=== PATIENT | female | born 1950 | race Caucasian/White ===

== ENCOUNTER 2016-09-03 13:27 | Emergency (ER) | payer MEDICARE, OTHER ==
[~2016-09-03] VITALS: Ht 152.4 cm; Wt 57.2 kg
[~2016-09-03 13:27] MED LIST: ATOR1TAB21 PO; CETI10TA PO; FLON1SPR; FLUO40CA PO; LEVO25TA5 PO; LISI10TA4 PO; MIRT30TA3 PO; NIAS1000 PO; OMEP40CA2 PO; SPIR1CAP INH; TOPR50TA PO
[2016-09-03] MEDS ORDERED: CYCL10TA PO (13:43)
[2016-09-03] MEDS ORDERED: FLUTISP (13:43)
[2016-09-03 15:10] LABS: BASO % 0.9 % (0.0-1.0); EOS # 0.1 K/mm3 (0.0-0.50); EOS % 2.6 % (0.0-3.0); LARGE UNSTAINED CELL # 0.2 K/mm3 (0.0-0.4); LARGE UNSTAINED CELL % 3.3 % (0.0-4.0); LYMPH # 2.4 K/mm3 (1.5-4.5); LYMPH % 44.1 % (24.0-44.0); MEAN CORPUSCULAR HEMOGLOBIN 34.1 pg (27.0-33.0); MEAN CORPUSCULAR VOLUME 103.5 fl (80.0-96.0); MONO # 0.4 K/mm3 (0.0-0.8); MONO % 6.3 % (0.0-5.0); NEUTROPHILS # 2.4 K/mm3 (1.8-7.7); NEUTROPHILS % 42.7 % (36.0-66.0); PLATELET COUNT, AUTOMATED 252 k/mm3 (150-450); RED CELL DISTRIBUTION WIDTH 13.1 % (11.5-14.5); WHITE BLOOD COUNT 5.5 K/mm3 (4.0-10.0)
[2016-09-03 15:40] LABS: ALBUMIN 3.5 GM/DL (3.2-5.2); ALBUMIN/GLOBULIN RATIO 0.83 (1.00-1.93); ALKALINE PHOSPHATASE 110 U/L (45-117); ALT/SGPT 22 U/L (12-78); ANION GAP 5 MEQ/L (8-16); AST/SGOT 16 U/L (15-37); BILIRUBIN,DIRECT < 0.1 MG/DL (0.0-0.2); BILIRUBIN,TOTAL 0.2 MG/DL (0.2-1.0); BLOOD UREA NITROGEN 18 MG/DL (7-18); CARBON DIOXIDE LEVEL 27 MEQ/L (21-32); CHLORIDE LEVEL 111 MEQ/L (98-107); CREATININE FOR GFR 1.01 MG/DL (0.55-1.02); GLOMERULAR FILTRATION RATE 58.6 (>45); GLUCOSE, FASTING 85 MG/DL (80-110); POTASSIUM SERUM 4.1 MEQ/L (3.5-5.1); SODIUM LEVEL 143 MEQ/L (136-145); TOTAL PROTEIN 7.7 GM/DL (6.4-8.2)
[2016-09-03] MEDS ORDERED: fentaNYL 100 MCG/2 ML INJECTION (J3010) IV ONE (16:45)
[2016-09-03] MEDS ORDERED: ONDANSETRON 4MG/2ML VIAL (J2405) IV ONE (16:45)
[2016-09-03 18:50] VITALS: BP 117/65
== END 2016-09-03 18:53 | disposition home or self-care (01) ==
LOC: M ED 17:24
DX: R42 Dizziness and giddiness (principal); R51 Headache; R11.0 Nausea; J44.9 Chronic obstructive pulmonary disease, unspecified; I11.9 Hypertensive heart disease without heart failure; I35.9 Nonrheumatic aortic valve disorder, unspecified; I67.1 Cerebral aneurysm, nonruptured; F17.200 Nicotine dependence, unspecified, uncomplicated; Z88.5 Allergy status to narcotic agent; Z88.2 Allergy status to sulfonamides; Z79.899 Other long term (current) drug therapy
CPT/HCPCS: 70450; 71020; 80048; 80076; 81001; 84443; 85025; 93005; 96374; 96375; 99284; J2405; J3010

== ENCOUNTER → 2016-11-05 | Outpatient (CLI) | payer MEDICARE, OTHER ==
[~2016-11-05] MED LIST changes: +CYCL10TA PO; +FLUTISP; +PLAV1TAB2 PO
[2016-11-05 09:50] LABS: BASO % 0.5 % (0.0-1.0); EOS # 0.1 K/mm3 (0.0-0.50); EOS % 2.7 % (0.0-3.0); LYMPH # 1.5 K/mm3 (1.5-4.5); LYMPH % 29.1 % (24.0-44.0); MEAN CORPUSCULAR HEMOGLOBIN 34.2 pg (27.0-33.0); MEAN CORPUSCULAR HGB CONC 33.6 g/dl (32.0-36.5); MEAN CORPUSCULAR VOLUME 101.7 fl (80.0-96.0); MONO # 0.3 K/mm3 (0.0-0.8); MONO % 5.7 % (0.0-5.0); NEUTROPHILS # 3.1 K/mm3 (1.8-7.7); RED CELL DISTRIBUTION WIDTH 13.5 % (11.5-14.5); WHITE BLOOD COUNT 5.2 K/mm3 (4.0-10.0)
[2016-11-05 10:25] LABS: ALBUMIN 3.7 GM/DL (3.2-5.2); ALBUMIN/GLOBULIN RATIO 1.06 (1.00-1.93); ALKALINE PHOSPHATASE 102 U/L (45-117); ALT/SGPT 18 U/L (12-78); ANION GAP 5 MEQ/L (8-16); AST/SGOT 14 U/L (15-37); BILIRUBIN,TOTAL 0.3 MG/DL (0.2-1.0); BLOOD UREA NITROGEN 12 MG/DL (7-18); CARBON DIOXIDE LEVEL 27 MEQ/L (21-32); CHLORIDE LEVEL 112 MEQ/L (98-107); CHOLESTEROL LEVEL 157 MG/DL (<200); CREATININE FOR GFR 0.92 MG/DL (0.55-1.02); FREE T4 0.94 NG/DL (0.76-1.46); GLOMERULAR FILTRATION RATE > 60.0 (>45); GLUCOSE, FASTING 94 MG/DL (80-110); POTASSIUM SERUM 4.6 MEQ/L (3.5-5.1); SODIUM LEVEL 144 MEQ/L (136-145); TOTAL PROTEIN 7.2 GM/DL (6.4-8.2); TRIGLYCERIDES LEVEL 148 MG/DL (<150)
== END ==
LOC: M LAB 09:12
PROVIDERS: ATTEND Nurse Practitioner Adult Health
DX: Z51.81 Encounter for therapeutic drug level monitoring (principal); Z79.899 Other long term (current) drug therapy; E78.00 Pure hypercholesterolemia, unspecified; E55.9 Vitamin D deficiency, unspecified

== ENCOUNTER 2016-12-21 19:49 | Emergency (ER) | payer MEDICARE, OTHER ==
[~2016-12-21] VITALS: Ht 152.4 cm; Wt 56.3 kg
[~2016-12-21 19:49] MED LIST changes: -PLAV1TAB2 PO
[2016-12-21] MEDS ORDERED: PLAV1TAB2 PO (20:07)
[2016-12-21] MEDS ORDERED: MORPHINE 2 MG/ML 1ML SYRINGE IV ONE (20:30)
[2016-12-21] MEDS ORDERED: ASPIRIN 325 MG TAB PO ONE (20:30)
[2016-12-21 20:52] LABS: BASO % 0.4 % (0.0-1.0); EOS # 0.2 10^3/uL (0.0-0.50); EOS % 1.8 % (0.0-3.0); IMMATURE GRANULOCYTE % 0.4 % (0-0); LYMPH # 3.6 10^3/uL (1.5-4.5); LYMPH % 43.6 % (24.0-44.0); MEAN CORPUSCULAR HEMOGLOBIN 33.7 pg (27.0-33.0); MEAN CORPUSCULAR HGB CONC 33.3 g/dl (32.0-36.5); MEAN CORPUSCULAR VOLUME 101.2 fl (80.0-96.0); MONO # 0.5 10^3/uL (0.0-0.8); MONO % 6.3 % (0.0-5.0); NEUTROPHILS # 3.9 10^3/uL (1.8-7.7); NEUTROPHILS % 47.5 % (36.0-66.0); PLATELET COUNT, AUTOMATED 248 10^3/uL (150-450); RED CELL DISTRIBUTION WIDTH 14.4 % (11.5-14.5); WHITE BLOOD COUNT 8.3 10^3/uL (4.0-10.0)
[2016-12-21 20:57] LABS: ADD MORPHOLOGY? NO
[2016-12-21 21:04] LABS: INR 0.94
[2016-12-21 21:25] LABS: ANION GAP 8 MEQ/L (8-16); BLOOD UREA NITROGEN 22 MG/DL (7-18); CALCIUM LEVEL 8.8 MG/DL (8.8-10.2); CARBON DIOXIDE LEVEL 25 MEQ/L (21-32); CHLORIDE LEVEL 108 MEQ/L (98-107); CREATININE FOR GFR 0.95 MG/DL (0.55-1.02); GLOMERULAR FILTRATION RATE > 60.0 (>45); GLUCOSE, FASTING 89 MG/DL (80-110); POTASSIUM SERUM 4.1 MEQ/L (3.5-5.1); SODIUM LEVEL 141 MEQ/L (136-145)
[2016-12-22 02:30] VITALS: BP 128/73
--- NOTE | 2016-12-22 08:26 | REP ---
Portable chest, 08:45 p.m., single AP view, patient sitting: Comparison is 09/03/2016. The lung phillips are clear. The cardiac size is normal. The vilma, mediastinum, and bony thorax are unremarkable. Impression: Negative portable chest. Signed by Julio Solorio MD 12/22/2016 08:18 A
--- NOTE | 2016-12-22 09:30 | ECGEPIP ---
Stationary ECG Study 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
--- NOTE | 2016-12-22 09:32 | ECGEPIP ---
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
== END 2016-12-22 02:56 | disposition home or self-care (01) ==
LOC: M ED 19:49
DX: R07.89 Other chest pain (principal); I10 Essential (primary) hypertension; J44.9 Chronic obstructive pulmonary disease, unspecified; I67.1 Cerebral aneurysm, nonruptured; E78.5 Hyperlipidemia, unspecified; K21.9 Gastro-esophageal reflux disease without esophagitis; E03.9 Hypothyroidism, unspecified; F33.9 Major depressive disorder, recurrent, unspecified; F17.210 Nicotine dependence, cigarettes, uncomplicated; Z79.01 Long term (current) use of anticoagulants; Z79.899 Other long term (current) drug therapy; Z79.51 Long term (current) use of inhaled steroids; Z86.79 Personal history of other diseases of the circulatory system; Z88.5 Allergy status to narcotic agent; Z88.2 Allergy status to sulfonamides

== ENCOUNTER → 2017-04-01 | Outpatient (CLI) | payer MEDICARE, OTHER ==
[2017-04-01 14:31] LABS: BASO # 0.1 10^3/uL (0.0-0.2); BASO % 0.9 % (0.0-1.0); EOS # 0.2 10^3/uL (0.0-0.50); EOS % 3.1 % (0.0-3.0); HEMATOCRIT 37.7 % (36.0-47.0); HEMOGLOBIN 12.5 g/dl (12.0-16.0); IMMATURE GRANULOCYTE % 0.4 % (0-0); LYMPH % 36.4 % (24.0-44.0); MEAN CORPUSCULAR HEMOGLOBIN 33.3 pg (27.0-33.0); MEAN CORPUSCULAR HGB CONC 33.2 g/dl (32.0-36.5); MEAN CORPUSCULAR VOLUME 100.5 fl (80.0-96.0); MONO # 0.5 10^3/uL (0.0-0.8); MONO % 8.8 % (0.0-5.0); NEUTROPHILS # 2.8 10^3/uL (1.8-7.7); NEUTROPHILS % 50.4 % (36.0-66.0); PLATELET COUNT, AUTOMATED 245 10^3/uL (150-450); RED BLOOD COUNT 3.75 10^6/uL (4.00-5.40); RED CELL DISTRIBUTION WIDTH 14.2 % (11.5-14.5); WHITE BLOOD COUNT 5.6 10^3/uL (4.0-10.0)
[2017-04-01 14:35] LABS: APPEARANCE, URINE CLEAR (CLEAR); BACTERIA, URINE AUTO 1+ (NEGATIVE); BILIRUBIN, URINE AUTO NEGATIVE (NEGATIVE); BLOOD, URINE BLOOD NEGATIVE (NEGATIVE); COLOR, URINE YELLOW (YELLOW); GLUCOSE, URINE (UA) AUTO NEGATIVE (NEGATIVE); KETONE, URINE AUTO NEGATIVE (NEGATIVE); LEUKOCYTE ESTERASE, URINE AUTO 2+ (NEGATIVE); NITRITE, URINE AUTO NEGATIVE (NEGATIVE); PROTEIN, URINE AUTO NEGATIVE (NEGATIVE); RBC, URINE AUTO 4 /HPF (0-3); SPECIFIC GRAVITY URINE AUTO 1.008 (1.002-1.035); SQUAMOUS EPITHELIAL CELL UR AU 2 /HPF (0-6); UROBILINOGEN, URINE AUTO 0.2 mg/dL (0.0-2.0); WBC, URINE AUTO 3 /HPF (0-3)
[2017-04-01 14:43] LABS: INR 0.91; PROTHROMBIN TIME 12.3 SECONDS (12.4-14.5)
[2017-04-01 14:44] LABS: PARTIAL THROMBOPLASTIN TIME 31.2 SECONDS (26.8-37.9)
[2017-04-01 14:58] LABS: ANION GAP 4 MEQ/L (8-16); BLOOD UREA NITROGEN 12 MG/DL (7-18); CALCIUM LEVEL 8.6 MG/DL (8.8-10.2); CARBON DIOXIDE LEVEL 29 MEQ/L (21-32); CHLORIDE LEVEL 110 MEQ/L (98-107); CREATININE FOR GFR 0.91 MG/DL (0.55-1.02); GLOMERULAR FILTRATION RATE > 60.0 (>45); GLUCOSE, FASTING 84 MG/DL (80-110); POTASSIUM SERUM 4.8 MEQ/L (3.5-5.1); SODIUM LEVEL 143 MEQ/L (136-145)
== END ==
LOC: M LAB 14:08
DX: Z01.812 Encounter for preprocedural laboratory examination (principal); I65.21 Occlusion and stenosis of right carotid artery; N39.0 Urinary tract infection, site not specified
CPT/HCPCS: 80048

== ENCOUNTER → 2017-07-26 | Outpatient (REF) | payer MEDICARE, OTHER | LOC: M LAB REF 15:15 | DX: R19.7 Diarrhea, unspecified (principal) | CPT/HCPCS: 87493 ==

== ENCOUNTER → 2017-09-08 | Outpatient (CLI) | payer MEDICARE, OTHER ==
[2017-09-08 09:54] LABS: BASO % 0.3 % (0.0-1.0); EOS # 0.1 10^3/uL (0.0-0.50); EOS % 1.7 % (0.0-3.0); HEMATOCRIT 35.9 % (36.0-47.0); HEMOGLOBIN 11.9 g/dl (12.0-15.5); IMMATURE GRANULOCYTE % 0.2 % (0-3.0); LYMPH % 34.6 % (24.0-44.0); MEAN CORPUSCULAR HEMOGLOBIN 33.7 pg (27.0-33.0); MEAN CORPUSCULAR HGB CONC 33.1 g/dl (32.0-36.5); MEAN CORPUSCULAR VOLUME 101.7 fl (80.0-96.0); MONO # 0.4 10^3/uL (0.0-0.8); MONO % 7.7 % (0.0-5.0); NEUTROPHILS # 3.2 10^3/uL (1.8-7.7); NEUTROPHILS % 55.5 % (36.0-66.0); PLATELET COUNT, AUTOMATED 234 10^3/uL (150-450); RED BLOOD COUNT 3.53 10^6/uL (4.00-5.40); RED CELL DISTRIBUTION WIDTH 14.5 % (11.5-14.5); WHITE BLOOD COUNT 5.7 10^3/uL (4.0-10.0)
[2017-09-08 10:05] LABS: ESTIMATED AVERAGE GLUCOSE 123 MG/DL (60-110); HEMOGLOBIN A1c 5.9 %
[2017-09-08 10:26] LABS: ALBUMIN 3.4 GM/DL (3.2-5.2); ALBUMIN/GLOBULIN RATIO 0.92 (1.00-1.93); ALKALINE PHOSPHATASE 93 U/L (45-117); ALT/SGPT 19 U/L (12-78); ANION GAP 3 MEQ/L (8-16); AST/SGOT 12 U/L (7-37); BILIRUBIN,TOTAL 0.2 MG/DL (0.2-1.0); BLOOD UREA NITROGEN 15 MG/DL (7-18); CALCIUM LEVEL 8.5 MG/DL (8.8-10.2); CARBON DIOXIDE LEVEL 28 MEQ/L (21-32); CHLORIDE LEVEL 112 MEQ/L (98-107); CHOLESTEROL LEVEL 155 MG/DL (<200); CREATININE FOR GFR 0.95 MG/DL (0.55-1.30); FREE T4 0.87 NG/DL (0.76-1.46); GLOMERULAR FILTRATION RATE > 60.0 (>45); GLUCOSE, FASTING 96 MG/DL (70-100); HDL CHOLESTEROL 42 MG/DL (>40); LDL CHOLESTEROL 86.2 MG/DL (<100); NON-HDL-C 113 MG/DL; POTASSIUM SERUM 4.2 MEQ/L (3.5-5.1); SODIUM LEVEL 143 MEQ/L (136-145); TOTAL PROTEIN 7.1 GM/DL (6.4-8.2); TRIGLYCERIDES LEVEL 134 MG/DL (<150)
[2017-09-08 10:31] LABS: TOTAL 25(OH) VITAMIN D 59.6 NG/ML (30.0-100.0)
== END ==
LOC: M LAB 09:23
DX: Z79.899 Other long term (current) drug therapy (principal)
CPT/HCPCS: 84443

== ENCOUNTER 2018-08-26 12:53 | Emergency (ER) | payer MEDICARE, OTHER ==
[~2018-08-26 12:53] MED LIST changes: +ASPI81TA26 PO; -NIAS1000 PO; +PLAV1TAB2 PO; +VITA50005 PO; +[UNRECOGNIZED DRUG - CODE] PO
--- NOTE | 2018-08-26 13:53 | REP ---
Clinical: Headache. Comparison: 09/03/2016 Findings: Left-sided aneurysmal clipping. The ventricles, sulci, and cisterns are normal in position and appearance. To-white differentiation is maintained. No acute intracranial hemorrhage, mass/mass effect, pathology or trauma/injury. No evidence for acute infarction. No extra-axial fluid collection. Calvarium is intact. Paranasal sinuses and mastoid air cells are clear. Impression: Evidence for recent left-sided aneurysmal clipping. No evidence for acute intracranial pathology or trauma/injury. Electronically Signed by Manny Hernandez MD 08/26/2018 01:45 P
--- NOTE | 2018-08-26 13:54 | REP ---
Clinical: Altered mental status . Comparison: 12/21/2016 . Findings: The mediastinum and cardiac silhouette are stable and within normal limits for portable technique. The lung phillips are clear without acute consolidation, effusion, or pneumothorax. Skeletal structures are intact. Impression: No acute cardiopulmonary process appreciated. Electronically Signed by Manny Hernandez MD 08/26/2018 01:45 P
--- NOTE | 2018-08-26 13:56 | REP ---
Clinical: Headache. Technique: Axial noncontrast images from the skull base to the thoracic inlet with coronal and sagittal re-formations. Comparison: Neck CT dated 07/08/2016 Findings: Straightening of normal lordosis and advanced multilevel degenerative disc osteophyte complexes are progressive when compared to prior examination. No acute fracture / compression injury or subluxation. Spinal canal is patent. Posterior elements and spinous processes are intact. Paravertebral soft tissues are normal. Impression: Advanced multilevel degenerative spondylosis. No acute fracture / compression injury or subluxation. Electronically Signed by Manny Hernandez MD 08/26/2018 01:47 P
[2018-08-26] MEDS ORDERED: ONDANSETRON 4MG/2ML VIAL (J2405) IV ONE (14:15)
[2018-08-26] MEDS ORDERED: MORPHINE 2 MG/ML 1ML SYRINGE (J2270) IV PRN (14:15)
[2018-08-26 14:21] LABS: BASO % 0.7 % (0.0-1.0); EOS # 0.1 10^3/uL (0.0-0.50); EOS % 1.1 % (0.0-3.0); HEMOGLOBIN 11.3 g/dl (12.0-15.5); LYMPH # 2.3 10^3/uL (1.5-4.5); LYMPH % 41.4 % (24.0-44.0); MEAN CORPUSCULAR HEMOGLOBIN 32.9 pg (27.0-33.0); MEAN CORPUSCULAR HGB CONC 32.3 g/dl (32.0-36.5); MONO # 0.4 10^3/uL (0.0-0.8); MONO % 7.6 % (0.0-5.0); NEUTROPHILS # 2.7 10^3/uL (1.8-7.7); PLATELET COUNT, AUTOMATED 236 10^3/uL (150-450); RED BLOOD COUNT 3.43 10^6/uL (4.00-5.40); WHITE BLOOD COUNT 5.6 10^3/uL (4.0-10.0)
[2018-08-26 14:38] LABS: INR 0.97
[2018-08-26 14:39] LABS: PARTIAL THROMBOPLASTIN TIME 32.3 SECONDS (25.4-37.6)
[2018-08-26 14:58] LABS: BLOOD UREA NITROGEN 10 MG/DL (7-18); CARBON DIOXIDE LEVEL 27 MEQ/L (21-32); CHLORIDE LEVEL 106 MEQ/L (98-107); CK-MB VALUE MASS < 1.0 NG/ML (<3.6); CPK CREATINE PHOSPHOKINASE 55 U/L (26-192); CREATININE FOR GFR 0.77 MG/DL (0.55-1.30); FREE T4 0.86 NG/DL (0.76-1.46); GLOMERULAR FILTRATION RATE > 60.0 (>45); GLUCOSE, FASTING 87 MG/DL (70-100); MB/CK RELATIVE INDEX 1.82 (< OR =4); POTASSIUM SERUM 4.4 MEQ/L (3.5-5.1); SODIUM LEVEL 142 MEQ/L (136-145); TROPONIN I < 0.02 NG/ML (< 0.10)
[2018-08-26 15:30] VITALS: BP 158/74
[2018-08-26] MEDS ORDERED: SKEL800T97 PO (15:36)
--- NOTE | 2018-08-26 19:23 | ECGEPIP ---
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
[2018-08-30 00:08] LABS: Lyme Disease IgG/IgM Antibodie <0.91 ISR (0.00-0.90); Lyme Disease IgM Ab Quantitati <0.80 index (0.00-0.79)
== END 2018-08-26 16:06 | disposition home or self-care (01) ==
LOC: M ED 12:53
DX: M62.838 Other muscle spasm (principal); I11.9 Hypertensive heart disease without heart failure; E78.00 Pure hypercholesterolemia, unspecified; F44.9 Dissociative and conversion disorder, unspecified; K22.70 Barrett's esophagus without dysplasia; F32.9 Major depressive disorder, single episode, unspecified; F17.200 Nicotine dependence, unspecified, uncomplicated; Z91.041 Radiographic dye allergy status; Z88.2 Allergy status to sulfonamides; Z88.5 Allergy status to narcotic agent; Z79.899 Other long term (current) drug therapy; Z79.82 Long term (current) use of aspirin
CPT/HCPCS: 36415; 70450; 71045; 72125; 80048; 82550; 82553; 84439; 84443; 84484; 85025; 85610; 85730; 86617; 86850; 86900; 86901; 93005; 93041; 94760; 96374; 96375; 99285; J2270; J2405

== ENCOUNTER 2018-09-17 12:18 | Emergency (ER) | payer MEDICARE, OTHER ==
[~2018-09-17] VITALS: Ht 149.9 cm; Wt 55.0 kg
[~2018-09-17 12:18] MED LIST changes: +SKEL800T97 PO
[2018-09-17 12:52] LABS: BASO % 0.4 % (0.0-1.0); EOS # 0.1 10^3/uL (0.0-0.50); HEMATOCRIT 36.3 % (36.0-47.0); HEMOGLOBIN 12.2 g/dl (12.0-15.5); LYMPH # 1.6 10^3/uL (1.5-4.5); MEAN CORPUSCULAR HEMOGLOBIN 34.5 pg (27.0-33.0); MEAN CORPUSCULAR HGB CONC 33.6 g/dl (32.0-36.5); MEAN CORPUSCULAR VOLUME 102.5 fl (80.0-96.0); MONO # 0.5 10^3/uL (0.0-0.8); MONO % 10.8 % (0.0-5.0); NEUTROPHILS # 2.6 10^3/uL (1.8-7.7); NEUTROPHILS % 53.6 % (36.0-66.0); PLATELET COUNT, AUTOMATED 257 10^3/uL (150-450); RED BLOOD COUNT 3.54 10^6/uL (4.00-5.40); WHITE BLOOD COUNT 4.8 10^3/uL (4.0-10.0)
[2018-09-17] MEDS ORDERED: ZOLP10TA2 (12:56)
--- NOTE | 2018-09-17 12:58 | REP ---
CT of the brain without IV contrast: Comparison is 08/26/2018. There are too aneurysm clips. The left, as previously. There is no acute hemorrhage. There is no edema, mass effect or midline shift. The cortical stripe is unremarkable. The visualized paranasal sinuses and mastoid air cells are unchanged. Impression: There is no hemorrhage, acute infarct or mass. There are to aneurysm clips on the left, unchanged. Electronically Signed by Julio Solorio MD 09/17/2018 12:48 P
[2018-09-17] MEDS ORDERED: NS 1,000 ML IV ONE (13:00)
[2018-09-17 13:04] LABS: INR 1.08; PROTHROMBIN TIME 13.7 SECONDS (11.8-14.0)
--- NOTE | 2018-09-17 13:08 | REP ---
Portable chest, 12:38 p.m., single AP view with the patient sitting: Comparison is 08/26/2018. There is minor discoid atelectasis inferiorly in the left lung as an interval change. There is a bulla in the right apex, unchanged. Lung phillips otherwise clear. Cardiac size normal. The vilma, mediastinum, skeletal structures are unremarkable. Impression: Minor discoid atelectasis inferiorly in the left lung. Electronically Signed by Julio Solorio MD 09/17/2018 12:58 P
[2018-09-17 13:29] LABS: ALBUMIN 3.4 GM/DL (3.2-5.2); ALT/SGPT 13 U/L (12-78); BILIRUBIN,DIRECT < 0.1 MG/DL (0.0-0.2); BILIRUBIN,TOTAL 0.3 MG/DL (0.2-1.0); BLOOD UREA NITROGEN 10 MG/DL (7-18); CALCIUM LEVEL 8.8 MG/DL (8.8-10.2); CARBON DIOXIDE LEVEL 26 MEQ/L (21-32); CHLORIDE LEVEL 107 MEQ/L (98-107); CK-MB VALUE MASS < 1.0 NG/ML (<3.6); CPK CREATINE PHOSPHOKINASE 45 U/L (26-192); CREATININE FOR GFR 0.87 MG/DL (0.55-1.30); GLOMERULAR FILTRATION RATE > 60.0 (>45); GLUCOSE, FASTING 106 MG/DL (70-100); MAGNESIUM LEVEL 2.1 MG/DL (1.8-2.4); MB/CK RELATIVE INDEX 2.22 (< OR =4); SODIUM LEVEL 140 MEQ/L (136-145); TOTAL PROTEIN 7.4 GM/DL (6.4-8.2); TROPONIN I < 0.02 NG/ML (< 0.10)
[2018-09-17 16:36] VITALS: BP 130/74
--- NOTE | 2018-09-18 06:55 | ECGEPIP ---
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
== END 2018-09-17 16:46 | disposition home or self-care (01) ==
LOC: M ED 12:18
DX: R53.1 Weakness (principal); J44.9 Chronic obstructive pulmonary disease, unspecified; I10 Essential (primary) hypertension; E03.9 Hypothyroidism, unspecified; F32.9 Major depressive disorder, single episode, unspecified; E78.5 Hyperlipidemia, unspecified; Z72.0 Tobacco use; Z79.82 Long term (current) use of aspirin; Z79.899 Other long term (current) drug therapy; Z91.041 Radiographic dye allergy status; Z88.2 Allergy status to sulfonamides; Z88.5 Allergy status to narcotic agent

== ENCOUNTER → 2018-10-12 | Outpatient (CLI) | payer MEDICARE, OTHER ==
[~2018-10-12] MED LIST changes: +ZOLP10TA2
--- NOTE | 2018-10-12 13:46 | REP ---
Pelvis bilateral hip study: Five views. History: Low back pain. Hip pain. Findings: Bony pelvic ring is intact. Some vascular calcification is noted. Femoral heads are smooth and rounded. Hip joint spaces are preserved. Periarticular soft tissues are unremarkable bilaterally. There are degenerative disc and facet changes in the lower lumbar spine. Impression: Negative pelvis and bilateral hip study. Electronically Signed by Denny Rome MD 10/12/2018 07:21 P
--- NOTE | 2018-10-12 13:48 | REP ---
CERVICAL, THORACIC AND LUMBAR SPINE: Seven views. HISTORY: Low back pain back pain. Comparison cervical spine series February 24, 2010. FINDINGS: There is straightening of the normal cervical lordosis. Advanced degenerative disc disease is seen with anterior osteophyte formation at C3-4, C4-5, C5-6, and C6-7. This it is somewhat more pronounced than it was on February 24, 2010. No fracture or collapse is seen in the cervical spine. No malalignment is noted. 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 This is most pronounced on the left at C2-3 and C3-4. This is more pronounced than on the 2009 prior study as well. Thoracic vertebral body heights are preserved. Alignment is normal in the thoracic spine. There is moderate degenerative disc spurring anteriorly. Diffuse disc space narrowing and endplate sclerosis is seen in the thoracic spine. There is no fracture or collapse. Pedicles and posterior elements are intact. No paravertebral soft-tissue mass is seen. In the lumbar spine, there is a levoconvex curvature. Lumbar vertebral body heights are preserved. No fracture or collapse is seen. Diffuse degenerative disc disease is seen with anterior osteophyte formation. Psoas margins are symmetric. Sacrum and SI joints are intact. There is facet joint sclerosis and hypertrophy bilaterally at L5-S1, L4-5, and L3-4. IMPRESSION: Advanced degenerative spondylosis. No acute bony abnormality. Levoconvex curvature in the lumbar spine. Electronically Signed by Denny Rome MD 10/12/2018 07:22 P
== END ==
LOC: M RAD 10:14
PROVIDERS: ATTEND Nurse Practitioner Adult Health
DX: M54.2 Cervicalgia (principal); M47.897 Other spondylosis, lumbosacral region; M47.896 Other spondylosis, lumbar region

== ENCOUNTER → 2019-12-24 | Outpatient (CLI) | payer MEDICARE, OTHER ==
[~2019-12-24] MED LIST changes: +ATOR40TA75 PO; +BACL10TA2 PO; +CYAN1000VL; +CYCL-707 PO; -CYCL10TA PO; +ESCI20TA PO; +FOLI1TAB11 PO; -OMEP40CA2 PO; +OMEP40CA97 PO; +RA T500C2 PO; +VASC1CAP2 PO
[2019-12-24 13:34] LABS: BLOOD UREA NITROGEN 11 MG/DL (7-18); GLOMERULAR FILTRATION RATE > 60.0 (>45)
== END ==
LOC: M LAB 12:00
PROVIDERS: ATTEND Internal Medicine Gastroenterology
DX: R63.4 Abnormal weight loss (principal)

== ENCOUNTER → 2019-12-27 | Outpatient (CLI) | payer MEDICARE, OTHER | LOC: M RAD 12:01 | PROVIDERS: ATTEND Internal Medicine Gastroenterology | DX: R63.4 Abnormal weight loss (principal) ==

== ENCOUNTER → 2020-01-07 | Outpatient (CLI) | payer MEDICARE, OTHER ==
[~2020-01-07] MED LIST changes: +GASTROGRAFIN SOLUTION 30ML (Q9963) As Ordered ONE
--- NOTE | 2020-01-10 15:38 | REP ---
CT ABDOMEN WITHOUT INTRAVENOUS (IV) BUT WITH ORAL CONTRAST HISTORY: Abnormal weight loss. COMPARISON: CT study of the abdomen from 03/06/2005. 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 Axial CT images and lung window settings show that the lung bases are clear. There is no evidence of pleural effusion or upper abdominal ascites. The liver is normal in size and homogeneous in texture. Spleen is normal and homogeneous. No abnormality is noted in the pancreas or in the gallbladder. Normal adrenal glands are seen. The left kidney is mildly atrophic. There is a 2 mm intrarenal calculus in the upper pole of the right kidney. No hydronephrosis is seen on either side. The infrarenal abdominal aorta is dilated. The anteroposterior dimension is 3.3 cm. No perianeurysmal hemorrhage or fibrosis is appreciated. No retroperitoneal mass or adenopathy is seen. Small and large intestinal bowel loop are unremarkable in the abdomen. There is some diverticulosis affecting the left colon without CT evidence of diverticulitis. IMPRESSION: Mild left renal atrophy. Intrarenal nephrolithiasis upper pole right kidney without hydronephrosis. A 3.3 cm infrarenal abdominal aortic aneurysm. Left colonic diverticulosis. MTDD
== END ==
LOC: M RAD 14:20
PROVIDERS: ATTEND Internal Medicine Gastroenterology
DX: N20.0 Calculus of kidney (principal); I71.4 Abdominal aortic aneurysm, without rupture
CPT/HCPCS: 74160; Q9963

== ENCOUNTER → 2020-01-23 | Outpatient (CLI) | payer MEDICARE, OTHER ==
[~2020-01-23] MED LIST changes: -GASTROGRAFIN SOLUTION 30ML (Q9963) As Ordered ONE
== END | disposition home or self-care (01) ==
LOC: M LABSMTC 11:02
PROVIDERS: ATTEND Anesthesiology
DX: Z01.818 Encounter for other preprocedural examination (principal)
CPT/HCPCS: C9803; U0003

== ENCOUNTER 2020-01-28 11:52 | Day surgery (SDC) | payer MEDICARE, OTHER ==
[~2020-01-28] VITALS: Ht 149.9 cm; Wt 49.4 kg
[2020-01-28] MEDS ORDERED: propofoL 200 MG/20 ML VIAL As Ordered ONE (12:29)
[2020-01-28] MEDS ORDERED: LIDOCAINE 2% 100MG/5ML SDV (FOR ANES.) As Ordered ONE (12:29)
[2020-01-28] MEDS ORDERED: fentaNYL 100 MCG/2 ML INJECTION (J3010) As Ordered ONE (12:32)
[2020-01-28] MEDS ORDERED: NS 1,000 ML IV ONE (12:45)
[2020-01-28] MEDS ORDERED: ePHEDrine SULFATE 25 MG/5 ML(5MG/ML) SYRINGE As Ordered ONE (13:07)
--- NOTE | 2020-01-28 13:08 | ROOR ---
Patient Name: Blanca Machado Procedure Date: 01/28/2020 12:49 PM Date of : 1950 Age: 69 Room: [facility] Gender: Female Note Status: Finalized Procedure: Upper GI endoscopy Indications: Follow-up of Wang's esophagus, Diarrhea Providers: Zeferino DAVALOS MD Referring MD: ROMEO NIXON NP Requesting Provider: Medicines: Monitored Anesthesia Care Complications: No immediate complications. Procedure: Pre-Anesthesia Assessment: - The heart rate, respiratory rate, oxygen saturations, blood pressure, adequacy of pulmonary ventilation, and response to care were monitored throughout the procedure. The Endoscope was introduced through the mouth, and advanced to the second part of duodenum. The upper GI endoscopy was accomplished without difficulty. The patient tolerated the procedure well. Findings: The Z-line was variable and was found 35 cm from the incisors. This was biopsied with a cold forceps for histology. The examined esophagus was normal. The entire examined stomach was normal. The examined duodenum was normal. Biopsies for histology were taken with a cold forceps for evaluation of celiac disease. Impression: - Z-line variable, 35 cm from the incisors. Biopsied. - Normal esophagus. - Normal stomach. - Normal examined duodenum. Biopsied. Recommendation: - Telephone endoscopist for pathology results in 2 weeks. - Observe patient's clinical course. - Repeat upper endoscopy in 3 - 5 years for surveillance. Zeferino Davalos MD Zeferino DAVALOS MD 01/28/2020 1:07:46 PM Electronically signed by Zeferino DAVALOS MD Number of Addenda: 0 Note Initiated On: 01/28/2020 12:49 PM Estimated Blood Loss: Estimated blood loss: none.
--- NOTE | 2020-01-28 13:33 | ROOR ---
Patient Name: Blanca Machado Procedure Date: 01/28/2020 12:50 PM Date of : 1950 Age: 69 Room: [facility] Gender: Female Note Status: Finalized Procedure: Colonoscopy Indications: Clinically significant diarrhea of unexplained origin, Change in bowel habits Providers: Zeferino DAVALOS MD Referring MD: ROMEO NIXON NP Requesting Provider: Medicines: Monitored Anesthesia Care Complications: No immediate complications. Procedure: Pre-Anesthesia Assessment: - The heart rate, respiratory rate, oxygen saturations, blood pressure, adequacy of pulmonary ventilation, and response to care were monitored throughout the procedure. The Colonoscope was introduced through the anus and advanced to 5 cm into the ileum. The colonoscopy was performed without difficulty. The patient tolerated the procedure well. The quality of the bowel preparation was good. Findings: The perianal and digital rectal examinations were normal. Multiple small and large-mouthed diverticula were found in the sigmoid colon. There was evidence of diverticular spasm. Two sessile polyps were found in the proximal sigmoid colon. The polyps were 4 to 5 mm in size. These polyps were removed with a cold snare. Resection and retrieval were complete. The colon (entire examined portion) was redundant. The exam was otherwise without abnormality on direct and retroflexion views. Biopsies for histology were taken with a cold forceps for evaluation of microscopic colitis. Impression: - Internal Hemorrhoids. - Moderate diverticulosis in the sigmoid colon. There was evidence of diverticular spasm. - Two 4 to 5 mm polyps in the proximal sigmoid colon, removed with a cold snare. Resected and retrieved. - The Colon and examined terminal ileum are otherwise normal on direct and retroflexion views. - Biopsies were taken with a cold forceps for evaluation of microscopic colitis. Recommendation: - Telephone endoscopist for pathology results in 2 weeks. - Repeat colonoscopy in 3 - 5 years for surveillance. Zeferino Davalos MD Zeferino DAVALOS MD 01/28/2020 1:33:02 PM Electronically signed by Zeferino DAVALOS MD Number of Addenda: 0 Note Initiated On: 01/28/2020 12:50 PM Estimated Blood Loss: Estimated blood loss: none.
[2020-01-28 13:47] VITALS: BP 130/62
== END 2020-01-28 13:58 | disposition home or self-care (01) ==
LOC: M OPP 11:52
PROVIDERS: ATTEND Internal Medicine Gastroenterology
DX: D12.6 Benign neoplasm of colon, unspecified (principal); Q43.8 Other specified congenital malformations of intestine; R19.7 Diarrhea, unspecified; R19.4 Change in bowel habit; K22.8 Other specified diseases of esophagus; K22.70 Barrett's esophagus without dysplasia; J44.9 Chronic obstructive pulmonary disease, unspecified; K21.9 Gastro-esophageal reflux disease without esophagitis; Z79.82 Long term (current) use of aspirin; Z79.899 Other long term (current) drug therapy; Z88.1 Allergy status to other antibiotic agents; Z88.5 Allergy status to narcotic agent; Z91.041 Radiographic dye allergy status; F17.210 Nicotine dependence, cigarettes, uncomplicated
CPT/HCPCS: 43239; 45380; 45385; 88305; J3010

== ENCOUNTER → 2020-05-06 | Outpatient (CLI) | payer MEDICARE, OTHER ==
[~2020-05-06] MED LIST changes: -ESCI20TA PO; +ESCI20TA16 PO; +LISI10TA22 PO; -LISI10TA4 PO
--- NOTE | 2020-05-06 09:10 | REP ---
INDICATION: AAA / OCCLUSION/STENOSIS DARIELA CAROTID ARTERIES COMPARISON: None. TECHNIQUE: Real time javier scale ultrasound examination using curved array transducer. FINDINGS: Moderate atherosclerotic changes to the aorta noted along with infrarenal aneurysm measuring 3.0 x 2.7 cm in diameter and 4.1 cm in length beginning below the level of the renal arteries and tapering to normal before bifurcation to iliac arteries. Proximal aorta: 2.1 x 2.1 cm Aorta and renal arteries: 2.1 x 2.2 cm Mid aorta: 3.0 x 2.7 cm Distal aorta: 1.5 x 1.3 cm Right common iliac artery: 1.2 x 1.0 cm Left common iliac artery: 1.3 x 0.8 cm IMPRESSION: Atherosclerotic changes. Moderate infrarenal abdominal aortic aneurysm. <Electronically signed by Manny Hernandez > 05/06/20 [id number]
--- NOTE | 2020-05-06 09:16 | REP ---
INDICATION: AAA / OCCLUSION/STENOSIS DARIELA CAROTID ARTERIES COMPARISON: None. TECHNIQUE: To scale and color Doppler evaluation using linear high frequency transducer Findings: FINDINGS: Two-dimensional to scale and color images demonstrate mixed atheromatous plaquing through the common carotid arteries and carotid bulbs/proximal internal carotid arteries (left greater than right). Laminar flow noted without obvious area of occlusion. Normal flow direction in the bilateral vertebral arteries identified. ICA peak systolic velocity: Right 97.2 cm/s; Left 127.0 cm/s ICA diastolic velocity: Right 24.9 cm/s; Left 34.5 cm/s ECA peak systolic velocity: Right 65.9 cm/s; Left 97.8 cm/s CCA peak systolic velocity: Right 99.7 cm/s; Left 109.7 cm/s ICA/CCA ratio: Right 0.97 ; Left 1.15 IMPRESSION: No hemodynamically significant areas of narrowing or stenosis appreciated. Based on set standards narrowing falls within the less than 50% range range. <Electronically signed by Manny Hernandez > 05/06/20 [id number]
== END ==
LOC: M RAD 07:58
PROVIDERS: ATTEND Physician Assistant
DX: I65.23 Occlusion and stenosis of bilateral carotid arteries (principal); I71.4 Abdominal aortic aneurysm, without rupture; I25.10 Atherosclerotic heart disease of native coronary artery without angina pectoris

== ENCOUNTER → 2020-06-02 | Outpatient (CLI) | payer MEDICARE, OTHER ==
--- NOTE | 2020-06-02 11:08 | REP ---
INDICATION: CLAUDICATION COMPARISON: None. TECHNIQUE: Real time to scale and Duplex Doppler evaluation of the bilateral lower extremity arterial vasculature using linear high frequency transducer. FINDINGS: To scale and duplex doppler images demonstrate mild diffuse scattered plaquing bilaterally. Diffuse biphasic waveforms are seen bilaterally, triphasic waveform is noted in the right profunda artery. There is no evidence of hemodynamically significant stenosis bilaterally. There is no arterial occlusion. TAMMY right 0.8 and left 0.9. Peak systolic velocities (cm/sec) Common femoral artery: Right 122; Left 191 Profunda femoris: Right 145; Left 67 SFA (proximal): Right 106; Left 110 SFA (mid): Right 111; Left 113 SFA (distal): Right 88; Left for 92 Popliteal artery: Right 56; Left 73 DARIO (prox.): Right 46; Left 66 Tibioperoneal trunk: Right 75; Left 66 LAMP REPLACER (prox.): Right 72; Left 76 LAMP REPLACER (distal): Right 42; Left 46 DARIO (distal): Right 58; Left 51 IMPRESSION: Mild scattered plaquing bilaterally with no evidence of hemodynamically significant stenosis and no arterial occlusion. <Electronically signed by Julio To > 06/02/20 [id number]
== END ==
LOC: M RAD 09:21
PROVIDERS: ATTEND Physician Assistant
DX: I70.213 Atherosclerosis of native arteries of extremities with intermittent claudication, bilateral legs (principal); F17.210 Nicotine dependence, cigarettes, uncomplicated

== ENCOUNTER → 2020-07-14 | Outpatient (CLI) | payer MEDICARE, OTHER ==
--- NOTE | 2020-07-14 11:46 | REPMRS ---
Patient History The patient states she has not had a clinical breast exam in over a year. Patient is postmenopausal. No known family history of cancer. Digital Woman Screen Mammo: July 14, 2020 - Exam #: [id number] Bilateral CC and MLO view(s) were taken. Technologist: Luna Amin, Technologist No prior studies available for comparison. FINDINGS: There are scattered fibroglandular densities. The Volpara volumetric breast density category is: B. There is no evidence of dominant mass, architectural distortion, or grouped microcalcification typical of malignancy. 3-D tomosynthesis shows no additional findings. Assessment: BI-RADS/ACR category 1 mammogram. Negative Mammogram. Recommendation Routine screening mammogram of both breasts in 1 year (for women over age 40). This patient's [facility] Lifetime Breast Cancer RIsk is estimated at 4.7 %. This mammogram was interpreted with the aid of an FDA-approved computer-aided dectection system. Electronically Signed By: Dedrick oRme MD 07/14/20 [id number]
--- NOTE | 2020-07-14 12:05 | DEXAMM ---
INDICATION: Z13.820 SCREENING FOR OSTEOPOROSIS. COMPARISON: Comparison DEXA study May 22, 2004, April 16, 2003, and January 25, 2001.. TECHNIQUE: Bone density was measured using dual-energy x-ray absorptionmetry (DEXA). FINDINGS: AP SPINE L1-L4 BMD 1.200 g/cm2 Young Adult T-Score 0.2 Age Matched Z-Score 1.8. LT FEMUR, TOTAL BMD 0.954 g/cm2 Young Adult T-Score -0.4 Age Matched Z-Score 1.0. LT NECK BMD 0.881 g/cm2 Young Adult T-Score -1.1 Age Matched Z-Score 0.5. RT FEMUR, TOTAL BMD 0.956 g/cm2 Young Adult T-Score -0.4 Age Matched Z-Score . RT NECK BMD 1.0 0.909 g/cm2 Young Adult T-Score -0.9 Age Matched Z-Score 0.7. IMPRESSION: There is normal bone density of the spine. There is low bone density of the left hip. There is normal bone density of the right hip. The density of the spine has increased 13.8% since the initial exam on January 25, 2001. The density of the spine increased 8.7% since most recent exam on May 22, 2004. The density of the left hip has decreased 14.5% since initial exam on January 25, 2001. The density of the left hip has decreased 16.6% since most recent exam on May 22, 2004. The density of the right hip has decreased 8.6% since the initial exam on January 25, 2001. The density of the right hip has decreased 8.5% since the most recent exam on May 22, 2004. FOLLOW-UP: Recommendation for the next bone density exam: 2 years. <Electronically signed by Dedrick Rome > 07/14/20 [id number]
== END ==
LOC: M WHC 10:11
PROVIDERS: ATTEND Nurse Practitioner Family
DX: Z12.31 Encounter for screening mammogram for malignant neoplasm of breast (principal); M81.0 Age-related osteoporosis without current pathological fracture

== ENCOUNTER → 2021-11-17 | Outpatient (CLI) | payer MEDICARE, OTHER ==
[~2021-11-17] MED LIST changes: +HYDR-3363 PO; +LEXA1TAB2 PO; +OMEP40CA4 PO; -OMEP40CA97 PO
== END ==
LOC: M WHC 13:26
PROVIDERS: ATTEND Nurse Practitioner Family
DX: Z12.39 Encounter for other screening for malignant neoplasm of breast (principal); N60.02 Solitary cyst of left breast; M79.602 Pain in left arm
CPT/HCPCS: 76642; 77066; G0279

== ENCOUNTER → 2021-11-20 | Outpatient (CLI) | payer MEDICARE, OTHER | LOC: M RAD 09:29 | PROVIDERS: ATTEND Nurse Practitioner Family | DX: R91.8 Other nonspecific abnormal finding of lung field (principal); Z87.891 Personal history of nicotine dependence ==

== ENCOUNTER → 2021-12-14 | Outpatient (CLI) | payer MEDICARE, OTHER ==
[~2021-12-14] MED LIST changes: +ACET-1349 PO; +B-12100010 PO; +BENA25CA4 PO; +ERGO500029 PO; +OXYC1TAB23 PO; +TOPR25TA PO; +TRAM50TA2 PO; +VARE1TAB7 PO; -ZOLP10TA2; +ZOLP10TA2 PO
== END ==
LOC: M PLARAD 13:49
PROVIDERS: ATTEND Nurse Practitioner Family
DX: D38.1 Neoplasm of uncertain behavior of trachea, bronchus and lung (principal)
CPT/HCPCS: 78815; A9552

== ENCOUNTER → 2021-12-23 | Outpatient (CLI) | payer MEDICARE, OTHER ==
[~2021-12-23] MED LIST changes: -ACET-1349 PO; -B-12100010 PO; -BENA25CA4 PO; -TOPR25TA PO; +ZOLP10TA2; -ZOLP10TA2 PO
== END ==
LOC: M RAD 10:54
PROVIDERS: ATTEND Nurse Practitioner Family
DX: I71.4 Abdominal aortic aneurysm, without rupture (principal)

== ENCOUNTER → 2021-12-23 | Outpatient (CLI) | payer MEDICARE, OTHER ==
[~2021-12-23] MED LIST changes: +ACET-1349 PO; +B-12100010 PO; +BENA25CA4 PO; +TOPR25TA PO; -ZOLP10TA2; +ZOLP10TA2 PO
== END ==
LOC: M RAD 13:00
PROVIDERS: ATTEND Nurse Practitioner Family
DX: I71.4 Abdominal aortic aneurysm, without rupture (principal)

== ENCOUNTER 2021-12-25 14:12 | Observation (INO) | payer MEDICARE, OTHER ==
[~2021-12-25] VITALS: Ht 149.9 cm; Wt 47.0 kg
[~2021-12-25 14:12] MED LIST changes: -HOME MED LIST COMPLETE! XX SCH; -KETOROLAC 30 MG/ML 1ML VIAL As Ordered ONE; -KETOROLAC 30 MG/ML 1ML VIAL IV ONE; -LIDOCAINE 1% MDV 20ML VIAL As Ordered ONE; -TOPR25TA PO
[2021-12-25] MEDS ORDERED: PERCOCET 5MG/325MG TAB PO PRN (15:00)
[2021-12-25] MEDS ORDERED: IPRATROPIUM 0.5MG/ALBUTEROL 2.5MG INH SOL UD 3ML (DUONEB) NEB PRN (15:00)
[2021-12-25] MEDS: ASPIRIN 81MG ENTERIC TABLET PO SCH (15:50)
[2021-12-25] MEDS: ATORVASTATIN 20 MG TAB PO SCH (15:50)
[2021-12-25] MEDS: ESCITALOPRAM OXALATE 10 MG TAB (LEXAPRO) PO SCH (15:51)
[2021-12-25] MEDS ORDERED: IBUPROFEN 400MG TAB PO PRN (17:00)
[2021-12-25] MEDS ORDERED: zolPIDEM TARTRATE 5 MG TAB PO PRN (17:00)
[2021-12-25] MEDS: NICOTINE 14 MG/24 HR TRANSDERMAL TD SCH (17:44)
[2021-12-25 17:53] VITALS: BP 139/63
[2021-12-25 20:00] VITALS: BP 124/58
[2021-12-25] MEDS ORDERED: METOPROLOL SUCC (TopROL XL) 50MG **XL** TAB PO SCH (21:00)
[2021-12-25] MEDS ORDERED: TIOTROPIUM INHALER/CAPSULE (SPIRIVA) INH SCH (21:00)
[2021-12-25] MEDS: PERCOCET 5MG/325MG TAB PO PRN (21:21)
[2021-12-25] MEDS: OMEPRAZOLE 20MG CAP PO SCH (21:21)
[2021-12-26] VITALS (7 sets, daily range): BP systolic 115–139; BP diastolic 56–89
[2021-12-26] MEDS ORDERED: LEVOTHYROXINE 25MCG TABLET (0.025MG) PO SCH (06:00)
[2021-12-26] MEDS: PERCOCET 5MG/325MG TAB PO PRN (06:05)
[2021-12-26 06:37] LABS: HEMATOCRIT 34.1 % (36.0-47.0); HEMOGLOBIN 11.1 g/dl (12.0-15.5); MEAN CORPUSCULAR HEMOGLOBIN 34.6 pg (27.0-33.0); MEAN CORPUSCULAR HGB CONC 32.6 g/dl (32.0-36.5); MEAN CORPUSCULAR VOLUME 106.2 fl (80.0-96.0); PLATELET COUNT, AUTOMATED 225 10^3/uL (150-450); RED BLOOD COUNT 3.21 10^6/uL (4.00-5.40); WHITE BLOOD COUNT 6.9 10^3/uL (4.0-10.0)
[2021-12-26 07:10] LABS: BLOOD UREA NITROGEN 23 MG/DL (7-18); CALCIUM LEVEL 8.9 MG/DL (8.8-10.2); CARBON DIOXIDE LEVEL 29 MEQ/L (21-32); CHLORIDE LEVEL 109 MEQ/L (98-107); CREATININE FOR GFR 0.89 MG/DL (0.55-1.30); GLOMERULAR FILTRATION RATE > 60.0 (>39); GLUCOSE, FASTING 86 MG/DL (70-100); POTASSIUM SERUM 4.1 MEQ/L (3.5-5.1); SODIUM LEVEL 142 MEQ/L (136-145)
[2021-12-26] MEDS: OMEPRAZOLE 20MG CAP PO SCH (08:31)
[2021-12-26] MEDS: ASPIRIN 81MG ENTERIC TABLET PO SCH (08:31)
[2021-12-26] MEDS: ATORVASTATIN 20 MG TAB PO SCH (08:31)
[2021-12-26] MEDS: NICOTINE 14 MG/24 HR TRANSDERMAL TD SCH (08:32)
[2021-12-26] MEDS: ESCITALOPRAM OXALATE 10 MG TAB (LEXAPRO) PO SCH (08:32)
[2021-12-26] MEDS ORDERED: FOLIC ACID 1MG TAB PO SCH (09:00)
[2021-12-26] MEDS ORDERED: NICOTINE 14 MG/24 HR TRANSDERMAL TD SCH (09:00)
[2021-12-26] MEDS ORDERED: CYANOCOBALAMIN 500 MCG TAB PO SCH (09:00)
[2021-12-26] MEDS ORDERED: TOPR25TA PO (13:08)
== END 2021-12-26 16:48 | disposition home or self-care (01) ==
LOC: M PCU 14:23 → INTOOBSV 14:23
PROVIDERS: ADMIT Internal Medicine; ATTEND Internal Medicine
DX: J95.811 Postprocedural pneumothorax (principal); R91.1 Solitary pulmonary nodule; I67.1 Cerebral aneurysm, nonruptured; Z95.828 Presence of other vascular implants and grafts; I71.43 Infrarenal abdominal aortic aneurysm, without rupture; I10 Essential (primary) hypertension; E03.9 Hypothyroidism, unspecified; E78.5 Hyperlipidemia, unspecified; J44.9 Chronic obstructive pulmonary disease, unspecified; K21.9 Gastro-esophageal reflux disease without esophagitis; F32.A Depression, unspecified; F17.210 Nicotine dependence, cigarettes, uncomplicated; Z79.899 Other long term (current) drug therapy; Z79.82 Long term (current) use of aspirin; Z79.890 Hormone replacement therapy; Z88.2 Allergy status to sulfonamides; Z88.5 Allergy status to narcotic agent; Z91.041 Radiographic dye allergy status
CPT/HCPCS: 36415; 71045; 80048; 85027; G0378

== ENCOUNTER → 2021-12-25 | Outpatient (CLI) | payer MEDICARE, OTHER ==
[~2021-12-25] MED LIST changes: +HOME MED LIST COMPLETE! XX SCH; +KETOROLAC 30 MG/ML 1ML VIAL As Ordered ONE; +KETOROLAC 30 MG/ML 1ML VIAL IV ONE; +LIDOCAINE 1% MDV 20ML VIAL As Ordered ONE
[2021-12-25 13:50] LABS: HEMATOCRIT 36.5 % (36.0-47.0); MEAN CORPUSCULAR HEMOGLOBIN 34.4 pg (27.0-33.0); MEAN CORPUSCULAR HGB CONC 32.9 g/dl (32.0-36.5); MEAN CORPUSCULAR VOLUME 104.6 fl (80.0-96.0); PLATELET COUNT, AUTOMATED 250 10^3/uL (150-450); RED BLOOD COUNT 3.49 10^6/uL (4.00-5.40); WHITE BLOOD COUNT 6.4 10^3/uL (4.0-10.0)
[2021-12-25 14:30] VITALS: BP 167/75
[2021-12-25 14:30] LABS: ALBUMIN 3.5 GM/DL (3.2-5.2); ALT/SGPT 14 U/L (12-78); BILIRUBIN,TOTAL 0.3 MG/DL (0.2-1.0); BLOOD UREA NITROGEN 16 MG/DL (7-18); CALCIUM LEVEL 9.2 MG/DL (8.8-10.2); CARBON DIOXIDE LEVEL 29 MEQ/L (21-32); CHLORIDE LEVEL 109 MEQ/L (98-107); CREATININE FOR GFR 0.81 MG/DL (0.55-1.30); GLOMERULAR FILTRATION RATE > 60.0 (>39); GLUCOSE, FASTING 98 MG/DL (70-100); POTASSIUM SERUM 4.3 MEQ/L (3.5-5.1); SODIUM LEVEL 141 MEQ/L (136-145); TOTAL PROTEIN 7.3 GM/DL (6.4-8.2)
== END ==
LOC: M IRPRO 08:46
PROVIDERS: ATTEND Specialist
DX: R91.1 Solitary pulmonary nodule (principal); J95.811 Postprocedural pneumothorax
CPT/HCPCS: 32408; 36415; 80053; 85027; 88305; J1885

== ENCOUNTER → 2022-01-11 | Outpatient (CLI) | payer MEDICARE, OTHER ==
[~2022-01-11] MED LIST changes: +TOPR25TA PO
== END ==
LOC: M RAD 17:37
PROVIDERS: ATTEND Internal Medicine Pulmonary Disease
DX: R91.1 Solitary pulmonary nodule (principal)

== ENCOUNTER → 2022-01-18 | Outpatient (CLI) | payer MEDICARE, OTHER ==
[~2022-01-18] MED LIST changes: +ANOR1AER PO; +CEPH500C PO; +PRED20TA PO
== END ==
LOC: M LABSMTC 09:23
PROVIDERS: ATTEND Anesthesiology
DX: Z01.818 Encounter for other preprocedural examination (principal); Z11.52 Encounter for screening for COVID-19

== ENCOUNTER → 2022-01-19 | Outpatient (CLI) | payer MEDICARE, OTHER ==
[~2022-01-19] MED LIST changes: +METO1TAB32 PO
[2022-01-19 17:17] LABS: PLATELET COUNT, AUTOMATED 233 10^3/uL (150-450)
[2022-01-19 17:41] LABS: PROTHROMBIN TIME 13.4 SECONDS (12.5-14.5)
[2022-01-19 17:42] LABS: PARTIAL THROMBOPLASTIN TIME 25.9 SECONDS (24.8-34.2)
== END ==
LOC: M LAB 15:40
PROVIDERS: ATTEND Internal Medicine Pulmonary Disease
DX: Z01.812 Encounter for preprocedural laboratory examination (principal)

== ENCOUNTER 2022-01-20 07:30 | Inpatient (IN) | payer MEDICARE, OTHER ==
[2022-01-20] VITALS (7 sets, daily range): BP systolic 99–148; BP diastolic 50–63
[~2022-01-20] VITALS: Ht 144.8 cm; Wt 52.2 kg
[~2022-01-20 07:30] MED LIST changes: +ALBUTEROL SULFATE 2.5 MG/0.5 ML INH NEB SOLN INH ONE; +LIDOCAINE PRES-FREE 2% 10ML AMP NEB ONE; -METO1TAB32 PO
[2022-01-20] MEDS: LR 1,000 ML IV SCH ×3 (08:30→11:58)
[2022-01-20] MEDS ORDERED: EPINEPHrine 1MG/10ML SYRINGE 1.5IN As Ordered ONE ×2 (09:20→10:42)
[2022-01-20] MEDS ORDERED: CETACAINE SPRAY 5GM As Ordered ONE (09:20)
[2022-01-20] MEDS ORDERED: MIDAZOLAM INJ 2MG/2ML VIAL (J2250 PER 1MG) As Ordered ONE ×2 (10:01→12:30)
[2022-01-20] MEDS ORDERED: dexameTHASONE 4 MG/ML 1ML VIAL (J1100 PER 1MG) As Ordered ONE (10:01)
[2022-01-20] MEDS ORDERED: LIDOCAINE 2% 100MG/5ML SDV (FOR ANES.) As Ordered ONE (10:01)
[2022-01-20] MEDS ORDERED: propofoL 200 MG/20 ML VIAL As Ordered ONE ×2 (10:01→11:25)
[2022-01-20] MEDS ORDERED: ROCURONIUM BROMIDE 50 MG/5 ML VIAL As Ordered ONE ×2 (10:01→11:07)
[2022-01-20] MEDS ORDERED: SUGAMMADEX SODIUM 500 MG/5 ML VIAL (BRIDION) As Ordered ONE (10:01)
[2022-01-20] MEDS ORDERED: fentaNYL 100 MCG/2 ML INJECTION As Ordered ONE (10:01)
[2022-01-20] MEDS ORDERED: ONDANSETRON 4MG 2ML VIAL As Ordered ONE (10:01)
[2022-01-20] MEDS ORDERED: PHENYLephrine 500MCG 5ML (100MCG/ML) SYRINGE As Ordered ONE (10:01)
[2022-01-20] MEDS: THROMBIN SOLN 5,000 UNITS VIAL As Ordered ONE ×2 (10:41→10:42)
[2022-01-20] MEDS ORDERED: ONDANSETRON 4MG 2ML VIAL IV PRN (11:20)
[2022-01-20] MEDS ORDERED: PROPOFOL 1,000 MG/100 ML VIAL As Ordered ONE (11:24)
[2022-01-20] MEDS ORDERED: SUCCINYLCHOLINE 100 MG/5 ML SYRINGE (J0330) As Ordered ONE (11:25)
[2022-01-20] MEDS ORDERED: propofoL 1,000 MG in IV 1 EA IV SCH (11:55)
[2022-01-20] MEDS ORDERED: OXYC1TAB23 PO (12:00)
[2022-01-20] MEDS: propofoL 1,000 MG in IV 1 EA IV SCH ×3 (12:30→21:55)
[2022-01-20] MEDS ORDERED: methylPREDNISolone 125MG 2ML VIAL IV ONE (12:30)
[2022-01-20] MEDS ORDERED: MIDAZOLAM INJ 2MG/2ML VIAL (J2250 PER 1MG) IV ONE (12:35)
[2022-01-20 12:39] LABS: HEMATOCRIT 30.4 % (36.0-47.0); HEMOGLOBIN 10.1 g/dl (12.0-15.5); MEAN CORPUSCULAR HEMOGLOBIN 35.1 pg (27.0-33.0); MEAN CORPUSCULAR HGB CONC 33.2 g/dl (32.0-36.5); MEAN CORPUSCULAR VOLUME 105.6 fl (80.0-96.0); PLATELET COUNT, AUTOMATED 191 10^3/uL (150-450); RED BLOOD COUNT 2.88 10^6/uL (4.00-5.40); WHITE BLOOD COUNT 17.4 10^3/uL (4.0-10.0)
[2022-01-20] MEDS: fentaNYL 100 MCG/2 ML INJECTION IV PRN ×2 (12:44→12:53)
[2022-01-20 12:55] LABS: PROTHROMBIN TIME 13.4 SECONDS (12.5-14.5)
[2022-01-20 12:56] LABS: PARTIAL THROMBOPLASTIN TIME 26.4 SECONDS (24.8-34.2)
[2022-01-20] MEDS ORDERED: fentaNYL CITRATE/NaCl 1,000 MCG in IV 1 EA IV SCH (14:25)
[2022-01-20] MEDS ORDERED: FENTANYL DRIP LOCK BOX KEY 1 EACH XX PRN (14:25)
[2022-01-20] MEDS: D5W/0.9% SODIUM CHLORIDE 1,000 ML IV SCH (14:41)
[2022-01-20] MEDS: fentaNYL CITRATE/NaCl 1,000 MCG in IV 1 EA IV SCH (14:42)
[2022-01-20 15:17] LABS: ALBUMIN 2.7 GM/DL (3.2-5.2); ALT/SGPT 17 U/L (12-78); BILIRUBIN,TOTAL 0.2 MG/DL (0.2-1.0); BLOOD UREA NITROGEN 16 MG/DL (7-18); CALCIUM LEVEL 7.9 MG/DL (8.8-10.2); CARBON DIOXIDE LEVEL 30 MEQ/L (21-32); CHLORIDE LEVEL 104 MEQ/L (98-107); CREATININE FOR GFR 0.72 MG/DL (0.55-1.30); GLOMERULAR FILTRATION RATE > 60.0 (>39); GLUCOSE, FASTING 167 MG/DL (70-100); POTASSIUM SERUM 4.8 MEQ/L (3.5-5.1); SODIUM LEVEL 138 MEQ/L (136-145); TOTAL PROTEIN 5.3 GM/DL (6.4-8.2)
[2022-01-20 15:48] LABS: ABG BASE EXCESS 2.1 (-2.0-2.0); ABG HCO3 27.6 MEQ/L (22.0-26.0); ABG O2 SATURATION 96.3 % (95.0-99.0); ABG PARTIAL PRESSURE CO2 47.3 mmHg (35.0-45.0); ABG PARTIAL PRESSURE O2 87.8 mmHg (75.0-100.0); ABG STANDARD HCO3 26.3 MEQ/L (22.0-26.0); ABG TOTAL CO2 29.1 MEQ/L (23.0-31.0); ABG pH (ARTERIAL) 7.384 UNITS (7.350-7.450)
[2022-01-20 16:19] LABS: HEMATOCRIT 28.7 % (36.0-47.0); HEMOGLOBIN 9.5 g/dl (12.0-15.5)
[2022-01-20] MEDS: IPRATROPIUM 0.5MG/ALBUTEROL 2.5MG INH SOL UD 3ML (DUONEB) NEB SCH ×2 (16:55→19:09)
[2022-01-20] MEDS: CHLORHEXIDINE GLUCONATE 0.12 % 15ML UDC (PERIDEX ORAL RINSE) MT SCH (20:56)
[2022-01-20] MEDS: methylPREDNISolone 40MG 1ML VIAL IV SCH (20:56)
[2022-01-20 22:00] LABS: HEMATOCRIT 27.1 % (36.0-47.0)
[2022-01-21] VITALS (23 sets, daily range): BP systolic 95–200; BP diastolic 51–102; O2SAT 94
[2022-01-21] MEDS: methylPREDNISolone 40MG 1ML VIAL IV SCH ×3 (05:19→20:20)
[2022-01-21 05:53] LABS: ABG BASE EXCESS 1.8 (-2.0-2.0); ABG HCO3 26.5 MEQ/L (22.0-26.0); ABG PARTIAL PRESSURE CO2 42.3 mmHg (35.0-45.0); ABG PARTIAL PRESSURE O2 70.7 mmHg (75.0-100.0); ABG TOTAL CO2 27.8 MEQ/L (23.0-31.0); ABG pH (ARTERIAL) 7.415 UNITS (7.350-7.450)
[2022-01-21 06:17] LABS: HEMATOCRIT 25.7 % (36.0-47.0); HEMOGLOBIN 8.6 g/dl (12.0-15.5); MEAN CORPUSCULAR HEMOGLOBIN 35.5 pg (27.0-33.0); MEAN CORPUSCULAR HGB CONC 33.5 g/dl (32.0-36.5); MEAN CORPUSCULAR VOLUME 106.2 fl (80.0-96.0); PLATELET COUNT, AUTOMATED 147 10^3/uL (150-450); RED BLOOD COUNT 2.42 10^6/uL (4.00-5.40); WHITE BLOOD COUNT 8.2 10^3/uL (4.0-10.0)
[2022-01-21 06:26] LABS: ALBUMIN 2.5 GM/DL (3.2-5.2); ALT/SGPT 15 U/L (12-78); BILIRUBIN,TOTAL 0.3 MG/DL (0.2-1.0); BLOOD UREA NITROGEN 17 MG/DL (7-18); CALCIUM LEVEL 7.4 MG/DL (8.8-10.2); CARBON DIOXIDE LEVEL 25 MEQ/L (21-32); CHLORIDE LEVEL 106 MEQ/L (98-107); CREATININE FOR GFR 0.83 MG/DL (0.55-1.30); GLOMERULAR FILTRATION RATE > 60.0 (>39); GLUCOSE, FASTING 168 MG/DL (70-100); POTASSIUM SERUM 3.9 MEQ/L (3.5-5.1); SODIUM LEVEL 140 MEQ/L (136-145)
[2022-01-21] MEDS: propofoL 1,000 MG in IV 1 EA IV SCH ×2 (07:00→12:44)
[2022-01-21] MEDS ORDERED: MIDAZOLAM INJ 2MG/2ML VIAL (J2250 PER 1MG) As Ordered ONE ×2 (07:59→08:48)
[2022-01-21] MEDS ORDERED: ROCURONIUM BROMIDE 50 MG/5 ML VIAL As Ordered ONE (07:59)
[2022-01-21] MEDS ORDERED: propofoL 200 MG/20 ML VIAL As Ordered ONE (07:59)
[2022-01-21] MEDS ORDERED: fentaNYL 100 MCG/2 ML INJECTION As Ordered ONE (07:59)
[2022-01-21] MEDS ORDERED: LIDOCAINE 2% 100MG/5ML SDV (FOR ANES.) As Ordered ONE (07:59)
[2022-01-21] MEDS: IPRATROPIUM 0.5MG/ALBUTEROL 2.5MG INH SOL UD 3ML (DUONEB) NEB SCH ×4 (08:03→20:18)
[2022-01-21] MEDS: D5W/0.9% SODIUM CHLORIDE 1,000 ML IV SCH (08:13)
[2022-01-21] MEDS: CHLORHEXIDINE GLUCONATE 0.12 % 15ML UDC (PERIDEX ORAL RINSE) MT SCH (08:31)
[2022-01-21] MEDS: PANTOPRAZOLE 40MG VIAL IV SCH (08:31)
[2022-01-21] MEDS ORDERED: MIDAZOLAM INJ 2MG/2ML VIAL (J2250 PER 1MG) IV STA ×2 (08:45→10:22)
[2022-01-21] MEDS ORDERED: CETACAINE SPRAY 5GM As Ordered ONE ×2 (08:49→10:00)
[2022-01-21] MEDS ORDERED: ONDANSETRON 4MG 2ML VIAL IV PRN (10:15)
[2022-01-21] MEDS ORDERED: fentaNYL 100 MCG/2 ML INJECTION IV PRN (10:15)
[2022-01-21] MEDS ORDERED: MIDAZOLAM INJ 2MG/2ML VIAL (J2250 PER 1MG) IV PRN (10:35)
[2022-01-21 11:36] LABS: ABG HCO3 24.9 MEQ/L (22.0-26.0); ABG O2 SATURATION 87.6 % (95.0-99.0); ABG PARTIAL PRESSURE CO2 41.4 mmHg (35.0-45.0); ABG PARTIAL PRESSURE O2 52.6 mmHg (75.0-100.0); ABG STANDARD HCO3 24.3 MEQ/L (22.0-26.0); ABG TOTAL CO2 26.2 MEQ/L (23.0-31.0); ABG pH (ARTERIAL) 7.397 UNITS (7.350-7.450)
[2022-01-21 13:51] LABS: ABG BASE EXCESS 2.2 (-2.0-2.0); ABG HCO3 26.2 MEQ/L (22.0-26.0); ABG O2 SATURATION 96.2 % (95.0-99.0); ABG PARTIAL PRESSURE CO2 38.4 mmHg (35.0-45.0); ABG STANDARD HCO3 26.4 MEQ/L (22.0-26.0); ABG TOTAL CO2 27.4 MEQ/L (23.0-31.0); ABG pH (ARTERIAL) 7.452 UNITS (7.350-7.450)
[2022-01-21] MEDS: fentaNYL CITRATE/NaCl 1,000 MCG in IV 1 EA IV SCH (14:26)
[2022-01-21] MEDS ORDERED: dexmedeTOMidine 200 MCG in IV 1 EA IV SCH (15:00)
[2022-01-21 15:14] LABS: ABG BASE EXCESS 2.2 (-2.0-2.0); ABG O2 SATURATION 93.4 % (95.0-99.0); ABG PARTIAL PRESSURE CO2 37.1 mmHg (35.0-45.0); ABG PARTIAL PRESSURE O2 66.1 mmHg (75.0-100.0); ABG STANDARD HCO3 26.4 MEQ/L (22.0-26.0); ABG TOTAL CO2 27.1 MEQ/L (23.0-31.0); ABG pH (ARTERIAL) 7.463 UNITS (7.350-7.450)
[2022-01-21] MEDS ORDERED: METO1TAB32 PO (16:35)
[2022-01-21] MEDS ORDERED: HOME MED LIST COMPLETE! XX SCH (16:40)
[2022-01-21] MEDS ORDERED: RAMELTEON 8 MG TAB (ROZEREM) PO PRN (20:20)
[2022-01-22] VITALS (9 sets, daily range): BP systolic 118–157; BP diastolic 58–68
[2022-01-22] MEDS: methylPREDNISolone 40MG 1ML VIAL IV SCH (04:58)
[2022-01-22] MEDS: IPRATROPIUM 0.5MG/ALBUTEROL 2.5MG INH SOL UD 3ML (DUONEB) NEB SCH ×4 (07:54→19:54)
[2022-01-22 08:33] LABS: HEMATOCRIT 25.3 % (36.0-47.0); HEMOGLOBIN 8.2 g/dl (12.0-15.5); MEAN CORPUSCULAR HEMOGLOBIN 34.2 pg (27.0-33.0); MEAN CORPUSCULAR HGB CONC 32.4 g/dl (32.0-36.5); MEAN CORPUSCULAR VOLUME 105.4 fl (80.0-96.0); PLATELET COUNT, AUTOMATED 144 10^3/uL (150-450); WHITE BLOOD COUNT 13.4 10^3/uL (4.0-10.0)
[2022-01-22] MEDS: PANTOPRAZOLE 40MG VIAL IV SCH (09:15)
[2022-01-22 09:16] LABS: ALBUMIN 2.6 GM/DL (3.2-5.2); ALT/SGPT 15 U/L (12-78); BILIRUBIN,TOTAL 0.6 MG/DL (0.2-1.0); BLOOD UREA NITROGEN 18 MG/DL (7-18); CALCIUM LEVEL 8.3 MG/DL (8.8-10.2); CARBON DIOXIDE LEVEL 30 MEQ/L (21-32); CHLORIDE LEVEL 108 MEQ/L (98-107); CREATININE FOR GFR 0.65 MG/DL (0.55-1.30); GLOMERULAR FILTRATION RATE > 60.0 (>39); GLUCOSE, FASTING 129 MG/DL (70-100); POTASSIUM SERUM 4.3 MEQ/L (3.5-5.1); SODIUM LEVEL 141 MEQ/L (136-145); TOTAL PROTEIN 5.2 GM/DL (6.4-8.2)
[2022-01-22] MEDS: ACETAMINOPHEN TAB 650MG DOSE (2X325MG) PO PRN ×2 (09:16→16:21)
[2022-01-22] MEDS: predniSONE 20 MG TAB PO SCH (09:17)
[2022-01-22 13:54] LABS: HEMATOCRIT 26.3 % (36.0-47.0); HEMOGLOBIN 8.6 g/dl (12.0-15.5)
[2022-01-22] MEDS ORDERED: PRED20TA PO (14:28)
[2022-01-22] MEDS ORDERED: PERCOCET 5MG/325MG TAB PO PRN (17:05)
[2022-01-22] MEDS ORDERED: BACLOFEN 10 MG TAB PO PRN (17:05)
[2022-01-22] MEDS ORDERED: LORazepam 0.5 MG TAB PO ONE (17:05)
[2022-01-22] MEDS ORDERED: CETIRIZINE (ZyrTEC) 10 MG TAB PO PRN (17:05)
[2022-01-22] MEDS ORDERED: VITAMIN D 50,000 UNITS CAPSULE (ERGOCALCIFEROL 1.25MG) PO SCH (18:00)
[2022-01-22] MEDS: OMEPRAZOLE 20MG CAP PO SCH (20:10)
[2022-01-22] MEDS ORDERED: ATORVASTATIN 20 MG TAB PO SCH (21:00)
[2022-01-22] MEDS ORDERED: METOPROLOL SUCC *XL* 25MG TAB (TopROL *XL*) PO SCH (21:00)
[2022-01-22] MEDS ORDERED: ESCITALOPRAM OXALATE 10 MG TAB (LEXAPRO) PO SCH (21:00)
[2022-01-22] MEDS ORDERED: ASPIRIN 81MG ENTERIC TABLET PO SCH (21:00)
[2022-01-22] MEDS ORDERED: zolPIDEM TARTRATE 5 MG TAB PO SCH (21:00)
[2022-01-22] MEDS ORDERED: NIACIN SR (NIASPAN) 500MG TAB PO SCH (21:00)
[2022-01-23 04:00] VITALS: BP 135/63
[2022-01-23] MEDS ORDERED: LEVOTHYROXINE 50MCG TABLET (0.05MG) PO SCH (06:00)
[2022-01-23 08:00] VITALS: BP 154/70
[2022-01-23] MEDS: IPRATROPIUM 0.5MG/ALBUTEROL 2.5MG INH SOL UD 3ML (DUONEB) NEB SCH ×2 (08:14→11:40)
[2022-01-23] MEDS ORDERED: FOLIC ACID 1MG TAB PO SCH (09:00)
[2022-01-23] MEDS: predniSONE 20 MG TAB PO SCH (09:11)
[2022-01-23] MEDS: OMEPRAZOLE 20MG CAP PO SCH (09:11)
[2022-01-23] MEDS ORDERED: PRED20TA PO (09:37)
== END 2022-01-23 12:30 | disposition home or self-care (01) | DRG 907 ==
LOC: M SDC 07:30 → M ICU 12:00 → M SDC 12:00 → M ICU 13:52
PROVIDERS: ADMIT Internal Medicine; ATTEND Student in an Organized Health Care Education/Training Program
PROC: 0BBG8ZX Excision of Left Upper Lung Lobe, Via Natural or Artificial Opening Endoscopic, Diagnostic (ICD-10-PCS; 2022-01-20)
PROC: 0B9G8ZX Drainage of Left Upper Lung Lobe, Via Natural or Artificial Opening Endoscopic, Diagnostic (ICD-10-PCS; 2022-01-20)
PROC: 5A1945Z Respiratory Ventilation, 24-96 Consecutive Hours (ICD-10-PCS; 2022-01-20)
PROC: 0BCD8ZZ Extirpation of Matter from Right Middle Lung Lobe, Via Natural or Artificial Opening Endoscopic (ICD-10-PCS; 2022-01-21)
PROC: 0BCJ8ZZ Extirpation of Matter from Left Lower Lung Lobe, Via Natural or Artificial Opening Endoscopic (ICD-10-PCS; principal; 2022-01-21 09:00)
DX: J95.830 Postprocedural hemorrhage of a respiratory system organ or structure following a respiratory system procedure (principal); J96.21 Acute and chronic respiratory failure with hypoxia; R91.1 Solitary pulmonary nodule; J44.9 Chronic obstructive pulmonary disease, unspecified; I10 Essential (primary) hypertension; E03.9 Hypothyroidism, unspecified; E78.5 Hyperlipidemia, unspecified; F17.210 Nicotine dependence, cigarettes, uncomplicated; Z79.82 Long term (current) use of aspirin; Z79.890 Hormone replacement therapy; Z79.52 Long term (current) use of systemic steroids; Z79.899 Other long term (current) drug therapy; Z88.2 Allergy status to sulfonamides; Z88.5 Allergy status to narcotic agent; Z91.041 Radiographic dye allergy status; D50.0 Iron deficiency anemia secondary to blood loss (chronic); Y84.4 Aspiration of fluid as the cause of abnormal reaction of the patient, or of later complication, without mention of misadventure at the time of the procedure

== ENCOUNTER → 2022-01-26 | Outpatient (CLI) | payer MEDICARE, OTHER ==
[~2022-01-26] MED LIST changes: -ALBUTEROL SULFATE 2.5 MG/0.5 ML INH NEB SOLN INH ONE; +CLOP75TA99 PO; -LIDOCAINE PRES-FREE 2% 10ML AMP NEB ONE; +METO1TAB32 PO; -PLAV1TAB2 PO
[2022-01-26 14:34] LABS: BASO % 0.1 % (0.0-1.0); EOS # 0.1 10^3/uL (0.0-0.5); EOS % 1.1 % (0.0-3.0); HEMATOCRIT 29.4 % (36.0-47.0); HEMOGLOBIN 9.6 g/dl (12.0-15.5); LYMPH # 1.1 10^3/uL (1.5-5.0); LYMPH % 8.6 % (24.0-44.0); MEAN CORPUSCULAR HGB CONC 32.7 g/dl (32.0-36.5); MEAN CORPUSCULAR VOLUME 107.3 fl (80.0-96.0); MONO # 0.4 10^3/uL (0.0-0.8); MONO % 2.8 % (2.0-8.0); NEUTROPHILS % 86.8 % (36.0-66.0); PLATELET COUNT, AUTOMATED 210 10^3/uL (150-450); RED BLOOD COUNT 2.74 10^6/uL (4.00-5.40); WHITE BLOOD COUNT 12.7 10^3/uL (4.0-10.0)
[2022-01-26 15:17] LABS: PERCENT SATURATION 4.3 % (13.2-45.0)
== END ==
LOC: M LAB 12:37
PROVIDERS: ATTEND Nurse Practitioner Family
DX: D64.9 Anemia, unspecified (principal)

== ENCOUNTER → 2022-02-04 | Outpatient (CLI) | payer MEDICARE, OTHER | LOC: M ONCR 10:50 | PROVIDERS: ATTEND General Practice | DX: C34.12 Malignant neoplasm of upper lobe, left bronchus or lung (principal); F17.210 Nicotine dependence, cigarettes, uncomplicated; I71.40 Abdominal aortic aneurysm, without rupture, unspecified; J44.9 Chronic obstructive pulmonary disease, unspecified; Z79.82 Long term (current) use of aspirin; Z79.899 Other long term (current) drug therapy; Z80.1 Family history of malignant neoplasm of trachea, bronchus and lung; Z88.1 Allergy status to other antibiotic agents; Z88.2 Allergy status to sulfonamides; Z88.5 Allergy status to narcotic agent; Z86.79 Personal history of other diseases of the circulatory system; Z91.041 Radiographic dye allergy status; Z95.828 Presence of other vascular implants and grafts ==

== ENCOUNTER 2022-03-12 11:38 | Outpatient (RCR) | payer MEDICARE, OTHER ==
[~2022-03-12 11:38] MED LIST changes: +GABA-282 PO
[2022-03-23] MEDS ORDERED: OXYC1TAB23 PO (12:14)
[2022-03-26] MEDS ORDERED: HYDR-3713 PO (10:51)
== END 2022-03-27 ==
LOC: M ONCR 11:38
PROVIDERS: ATTEND General Practice
DX: C34.12 Malignant neoplasm of upper lobe, left bronchus or lung (principal)

== ENCOUNTER 2022-03-16 18:18 | Emergency (ER) | payer MEDICARE, OTHER ==
[2022-03-16] MEDS ORDERED: ACETAMINOPHEN TAB 650MG DOSE (2X325MG) PO ONE (18:55)
[2022-03-16 19:09] LABS: BASO % 0.2 % (0.0-1.0); EOS % 0.3 % (0.0-3.0); HEMATOCRIT 33.4 % (36.0-47.0); HEMOGLOBIN 10.7 g/dl (12.0-15.5); LYMPH # 0.5 10^3/uL (1.5-5.0); MEAN CORPUSCULAR HEMOGLOBIN 33.8 pg (27.0-33.0); MEAN CORPUSCULAR VOLUME 105.4 fl (80.0-96.0); MONO # 0.5 10^3/uL (0.0-0.8); NEUTROPHILS # 7.6 10^3/uL (1.5-8.5); PLATELET COUNT, AUTOMATED 245 10^3/uL (150-450); RED BLOOD COUNT 3.17 10^6/uL (4.00-5.40); WHITE BLOOD COUNT 8.7 10^3/uL (4.0-10.0)
[2022-03-16 19:30] LABS: CK-MB VALUE MASS < 1.0 NG/ML (<3.6)
[2022-03-16 19:32] LABS: BILIRUBIN,DIRECT < 0.1 MG/DL (<0.4)
[2022-03-16 19:33] LABS: ALBUMIN 3.4 G/DL (3.2-5.2); ALKALINE PHOSPHATASE 102 U/L (46-116); ALT/SGPT 25 U/L (7.0-40); AST/SGOT 49 U/L (<34); BILIRUBIN,TOTAL 0.3 MG/DL (0.3-1.2); BLOOD UREA NITROGEN 15 MG/DL (9-23); CALCIUM LEVEL 8.3 MG/DL (8.3-10.6); CARBON DIOXIDE LEVEL 24 MMOL/L (20-31); CHLORIDE LEVEL 104 MMOL/L (98-107); CPK CREATINE PHOSPHOKINASE 33 U/L (34-145); CREATININE FOR GFR 0.95 MG/DL (0.55-1.30); GLOMERULAR FILTRATION RATE > 60.0 (>39); GLUCOSE, FASTING 103 MG/DL (74-106); MB/CK RELATIVE INDEX 3.03 (< OR =4); POTASSIUM SERUM 4.1 MMOL/L (3.5-5.1); SODIUM LEVEL 137 MMOL/L (136-145); TOTAL PROTEIN 6.7 G/DL (5.7-8.2)
[2022-03-16 19:35] LABS: THYROID STIMULATING HORMONE 0.807 uIU/ML (0.55-4.78)
[2022-03-16 19:40] LABS: RSV AMPLIFICATION POSITIVE (NEGATIVE)
[2022-03-16 21:01] LABS: CK-MB VALUE MASS < 1.0 NG/ML (<3.6)
[2022-03-16 21:02] LABS: CPK CREATINE PHOSPHOKINASE 28 U/L (34-145); MB/CK RELATIVE INDEX 3.57 (< OR =4)
[2022-03-16 22:19] VITALS: O2SAT 93
[2022-03-16 23:16] VITALS: BP 133/63
== END 2022-03-16 23:17 | disposition home or self-care (01) ==
LOC: EDBD 18:18 → M ED 18:18
DX: R06.02 Shortness of breath (principal); B97.4 Respiratory syncytial virus as the cause of diseases classified elsewhere; J44.9 Chronic obstructive pulmonary disease, unspecified; I10 Essential (primary) hypertension; K21.9 Gastro-esophageal reflux disease without esophagitis; E78.5 Hyperlipidemia, unspecified; E03.9 Hypothyroidism, unspecified; R91.1 Solitary pulmonary nodule; I67.1 Cerebral aneurysm, nonruptured; F17.200 Nicotine dependence, unspecified, uncomplicated; Z88.2 Allergy status to sulfonamides; Z88.5 Allergy status to narcotic agent; Z91.041 Radiographic dye allergy status; Z79.82 Long term (current) use of aspirin; Z79.890 Hormone replacement therapy; Z79.899 Other long term (current) drug therapy

== ENCOUNTER → 2022-05-26 | Outpatient (CLI) | payer MEDICARE, OTHER ==
[~2022-05-26] MED LIST changes: +HYDR-3713 PO
[2022-05-26 10:03] LABS: HEMATOCRIT 38.1 % (36.0-47.0); HEMOGLOBIN 12.2 g/dl (12.0-15.5); MEAN CORPUSCULAR HEMOGLOBIN 32.7 pg (27.0-33.0); MEAN CORPUSCULAR VOLUME 102.1 fl (80.0-96.0); PLATELET COUNT, AUTOMATED 231 10^3/uL (150-450); RED BLOOD COUNT 3.73 10^6/uL (4.00-5.40); WHITE BLOOD COUNT 4.7 10^3/uL (4.0-10.0)
[2022-05-26 10:12] LABS: HEMOGLOBIN A1c 5.6 % (4.0-6.0)
[2022-05-26 10:35] LABS: ALBUMIN 3.4 G/DL (3.2-5.2); ALKALINE PHOSPHATASE 89 U/L (46-116); ALT/SGPT 12 U/L (7.0-40); AST/SGOT 14 U/L (<34); BILIRUBIN,TOTAL 0.3 MG/DL (0.3-1.2); BLOOD UREA NITROGEN 13 MG/DL (9-23); CALCIUM LEVEL 9.6 MG/DL (8.3-10.6); CARBON DIOXIDE LEVEL 30 MMOL/L (20-31); CHLORIDE LEVEL 107 MMOL/L (98-107); CHOLESTEROL LEVEL 266 MG/DL (<200); CHOLESTEROL RISK RATIO 7.91 (<5); CREATININE FOR GFR 0.86 MG/DL (0.55-1.30); GLOMERULAR FILTRATION RATE > 60.0 (>39); GLUCOSE, FASTING 91 MG/DL (74-106); HDL CHOLESTEROL 33.6 MG/DL (>40); LDL CHOLESTEROL 167.2 MG/DL (<100); NON-HDL-C 232 MG/DL; POTASSIUM SERUM 4.3 MMOL/L (3.5-5.1); SODIUM LEVEL 142 MMOL/L (136-145); THYROID STIMULATING HORMONE 3.828 uIU/ML (0.55-4.78); TOTAL PROTEIN 6.7 G/DL (5.7-8.2); TRIGLYCERIDES LEVEL 326 MG/DL (<150); VITAMIN B12 LEVEL 348 PG/ML (211-911)
[2022-05-26 10:41] LABS: TOTAL 25(OH) VITAMIN D 78.8 NG/ML (20.0-100.0)
[2022-05-26 10:59] LABS: ANISOCYTOSIS 1+; ATYPICAL LYMPH 1 % (0-5); EOSINOPHILS 3 % (0-3); LYMPHOCYTES 29 % (16-44); MONOCYTES 9 % (0-5); NEUTROPHILS 58 % (28-66); OVALOCYTES 1+; PLATELET ESTIMATE NORMAL (NORMAL)
== END ==
LOC: M LAB 09:32
PROVIDERS: ATTEND Nurse Practitioner Family
DX: E03.9 Hypothyroidism, unspecified (principal)

== ENCOUNTER → 2022-06-02 | Outpatient (CLI) | payer MEDICARE, OTHER | LOC: M RAD 12:31 | PROVIDERS: ATTEND General Practice | DX: C34.90 Malignant neoplasm of unspecified part of unspecified bronchus or lung (principal) ==

== ENCOUNTER → 2022-06-10 | Outpatient (CLI) | payer MEDICARE, OTHER | LOC: M ONCR 12:46 | PROVIDERS: ATTEND General Practice | DX: R91.8 Other nonspecific abnormal finding of lung field (principal); F17.218 Nicotine dependence, cigarettes, with other nicotine-induced disorders; M79.601 Pain in right arm; M79.602 Pain in left arm; Z79.890 Hormone replacement therapy; Z79.899 Other long term (current) drug therapy; Z88.1 Allergy status to other antibiotic agents; Z88.2 Allergy status to sulfonamides; Z88.5 Allergy status to narcotic agent; Z91.041 Radiographic dye allergy status ==

== ENCOUNTER → 2022-07-16 | Outpatient (REF) | payer MEDICARE, OTHER ==
[~2022-07-16] MED LIST changes: +FLUT50SP17; -FLUTISP
[2022-07-16 17:30] LABS: C REACTIVE PROTEIN QUANTITATIV 0.9 MG/DL (<1.0)
[2022-07-16 17:32] LABS: RHEUMATOID FACTOR QUANT 32.7 IU/ML (<14)
[2022-07-20 16:08] LABS: ANCA-ATYPICAL <1:20 titer (Neg:<1:20); ANTI DOUBLE STRAND-DNA AB <1 IU/mL (0-9); ANTINUCLEAR ANTIBODIES DIRECT Positive (Negative); CYTOPLASMIC NEUTROP AB ANCA-C <1:20 titer (Neg:<1:20); PERINUCLEAR AB ANCA-P <1:20 titer (Neg:<1:20); RNP ANTIBODIES >8.0 AI (0.0-0.9); SJOGREN'S ANTI SS-A <0.2 AI (0.0-0.9); SJOGREN'S ANTI SS-B <0.2 AI (0.0-0.9); SMITH ANTIBODIES <0.2 AI (0.0-0.9)
== END ==
LOC: M LAB REF 16:30
PROVIDERS: ATTEND Physician Assistant Medical
DX: M79.10 Myalgia, unspecified site (principal)

== ENCOUNTER → 2022-09-01 | Outpatient (CLI) | payer MEDICARE, OTHER | LOC: M WUC 10:17 | PROVIDERS: ATTEND Physician Assistant Medical | DX: R10.9 Unspecified abdominal pain (principal) ==

== ENCOUNTER → 2022-11-30 | Outpatient (CLI) | payer MEDICARE, OTHER | LOC: M RAD 10:22 | PROVIDERS: ATTEND General Practice | DX: C34.90 Malignant neoplasm of unspecified part of unspecified bronchus or lung (principal) ==

== ENCOUNTER → 2022-12-10 | Outpatient (CLI) | payer MEDICARE, OTHER | LOC: M ONCR 13:03 | PROVIDERS: ATTEND General Practice | DX: Z08 Encounter for follow-up examination after completed treatment for malignant neoplasm (principal); Z85.118 Personal history of other malignant neoplasm of bronchus and lung; J18.9 Pneumonia, unspecified organism; Z71.2 Person consulting for explanation of examination or test findings; Z92.3 Personal history of irradiation; Z79.82 Long term (current) use of aspirin; Z79.899 Other long term (current) drug therapy; Z87.891 Personal history of nicotine dependence; Z88.1 Allergy status to other antibiotic agents; Z88.2 Allergy status to sulfonamides; Z88.5 Allergy status to narcotic agent; Z91.041 Radiographic dye allergy status ==

== ENCOUNTER → 2022-12-28 | Outpatient (CLI) | payer MEDICARE, OTHER | LOC: M WUC 15:15 | PROVIDERS: ATTEND Physician Assistant Medical | DX: S22.42XA Multiple fractures of ribs, left side, initial encounter for closed fracture (principal); M19.012 Primary osteoarthritis, left shoulder; X58.XXXA Exposure to other specified factors, initial encounter; Y92.9 Unspecified place or not applicable; Y93.9 Activity, unspecified; Y99.9 Unspecified external cause status ==

== ENCOUNTER → 2022-12-28 | Outpatient (CLI) | payer MEDICARE, OTHER ==
[2022-12-28 11:32] LABS: CHOLESTEROL RISK RATIO 3.94 (<5); LDL CHOLESTEROL 89.4 MG/DL (<100)
== END ==
LOC: M LAB 09:06
PROVIDERS: ATTEND Internal Medicine Cardiovascular Disease
DX: I65.23 Occlusion and stenosis of bilateral carotid arteries (principal); I35.9 Nonrheumatic aortic valve disorder, unspecified

== ENCOUNTER → 2023-01-19 | Outpatient (REF) | payer MEDICARE, OTHER ==
[~2023-01-19] MED LIST changes: +LEVO1TAB39 PO
== END ==
LOC: M LAB REF 10:00
PROVIDERS: ATTEND Internal Medicine Critical Care Medicine
DX: J15.8 Pneumonia due to other specified bacteria (principal)

== ENCOUNTER → 2023-01-25 | Outpatient (REF) | payer MEDICARE, OTHER | LOC: M LAB REF 13:42 | PROVIDERS: ATTEND Internal Medicine Critical Care Medicine | DX: J15.8 Pneumonia due to other specified bacteria (principal) ==

== ENCOUNTER → 2023-02-28 | Outpatient (CLI) | payer MEDICARE, OTHER | LOC: M RAD 07:33 | PROVIDERS: ATTEND Internal Medicine Critical Care Medicine | DX: R91.8 Other nonspecific abnormal finding of lung field (principal) ==

== ENCOUNTER → 2023-04-27 | Outpatient (CLI) | payer MEDICARE, OTHER ==
[~2023-04-27] MED LIST changes: -FLUT50SP17; +FLUTISP
[2023-04-27 15:35] LABS: BASO % 0.7 % (0.0-1.0); EOS # 0.1 10^3/uL (0.0-0.5); EOS % 1.3 % (0.0-3.0); HEMATOCRIT 36.6 % (36.0-47.0); HEMOGLOBIN 11.9 g/dl (12.0-15.5); LYMPH % 36.4 % (24.0-44.0); MEAN CORPUSCULAR HEMOGLOBIN 32.6 pg (27.0-33.0); MEAN CORPUSCULAR HGB CONC 32.5 g/dl (32.0-36.5); MEAN CORPUSCULAR VOLUME 100.3 fl (80.0-96.0); MONO # 0.4 10^3/uL (0.0-0.8); MONO % 7.9 % (2.0-8.0); NEUTROPHILS # 2.9 10^3/uL (1.5-8.5); NEUTROPHILS % 53.5 % (36.0-66.0); PLATELET COUNT, AUTOMATED 278 10^3/uL (150-450); RED BLOOD COUNT 3.65 10^6/uL (4.00-5.40); WHITE BLOOD COUNT 5.5 10^3/uL (4.0-10.0)
[2023-04-27 16:05] LABS: BLOOD UREA NITROGEN 12 MG/DL (9-23); CALCIUM LEVEL 8.8 MG/DL (8.3-10.6); CARBON DIOXIDE LEVEL 29 MMOL/L (20-31); CHLORIDE LEVEL 108 MMOL/L (98-107); CREATININE FOR GFR 0.78 MG/DL (0.55-1.30); GLOMERULAR FILTRATION RATE > 60.0 (>39); GLUCOSE, FASTING 90 MG/DL (74-106); POTASSIUM SERUM 4.3 MMOL/L (3.5-5.1); SODIUM LEVEL 141 MMOL/L (136-145)
== END ==
LOC: M LAB 14:28
PROVIDERS: ATTEND Internal Medicine Cardiovascular Disease
DX: I65.23 Occlusion and stenosis of bilateral carotid arteries (principal)

== ENCOUNTER → 2023-05-05 | Outpatient (CLI) | payer MEDICARE, OTHER ==
[~2023-05-05] MED LIST changes: +ISOVUE-370 76% 100ML VIAL As Ordered ONE
== END ==
LOC: M RAD 08:53
PROVIDERS: ATTEND Internal Medicine Cardiovascular Disease
DX: Z53.9 Procedure and treatment not carried out, unspecified reason (principal)

== ENCOUNTER → 2023-05-17 | Outpatient (CLI) | payer MEDICARE, OTHER | LOC: M RAD 08:04 | PROVIDERS: ATTEND Internal Medicine Cardiovascular Disease | DX: I65.23 Occlusion and stenosis of bilateral carotid arteries (principal); E78.2 Mixed hyperlipidemia | CPT/HCPCS: 70498; Q9967 ==

== ENCOUNTER → 2023-05-25 | Outpatient (CLI) | payer MEDICARE, OTHER ==
[~2023-05-25] MED LIST changes: -ISOVUE-370 76% 100ML VIAL As Ordered ONE
== END ==
LOC: M WUC 14:17
PROVIDERS: ATTEND Physician Assistant Medical
DX: R06.02 Shortness of breath (principal); R05.3 Chronic cough

== ENCOUNTER → 2023-06-03 | Outpatient (CLI) | payer MEDICARE, OTHER | LOC: M RAD 15:07 | PROVIDERS: ATTEND General Practice | DX: C34.12 Malignant neoplasm of upper lobe, left bronchus or lung (principal) ==

== ENCOUNTER → 2023-06-08 | Outpatient (CLI) | payer MEDICARE, OTHER ==
[~2023-06-08] MED LIST changes: +AMIT50TA PO
== END ==
LOC: M ONCR 08:55
PROVIDERS: ATTEND General Practice
DX: C34.12 Malignant neoplasm of upper lobe, left bronchus or lung (principal); F17.210 Nicotine dependence, cigarettes, uncomplicated; R07.81 Pleurodynia; R29.6 Repeated falls; Z71.2 Person consulting for explanation of examination or test findings; Z88.1 Allergy status to other antibiotic agents; Z88.2 Allergy status to sulfonamides; Z88.5 Allergy status to narcotic agent; Z91.041 Radiographic dye allergy status; Z79.891 Long term (current) use of opiate analgesic; Z79.82 Long term (current) use of aspirin; Z79.899 Other long term (current) drug therapy; Z79.890 Hormone replacement therapy; Z92.3 Personal history of irradiation

== ENCOUNTER 2023-11-01 11:29 | Day surgery (SDC) | payer MEDICARE, OTHER ==
[~2023-11-01] VITALS: Ht 149.9 cm; Wt 47.7 kg
[~2023-11-01 11:29] MED LIST changes: +LEVO50TA5 PO; +NIAC1000 PO; +OXYC7.5T3; +TIZA4CAP3 PO
[2023-11-01] MEDS: NS 1,000 ML IV ONE (11:57)
[2023-11-01] MEDS ORDERED: fentaNYL 100 MCG/2 ML INJECTION As Ordered ONE (13:05)
[2023-11-01] MEDS ORDERED: LIDOCAINE 2% 100MG/5ML SDV (FOR ANES.) As Ordered ONE (13:08)
[2023-11-01] MEDS ORDERED: propofoL 200 MG/20 ML VIAL As Ordered ONE (13:08)
[2023-11-01 13:46] VITALS: TEMP 99.8
[2023-11-01 14:00] VITALS: BP 170/85; O2SAT 95
== END 2023-11-01 14:05 | disposition home or self-care (01) ==
LOC: M OPP 11:29
PROVIDERS: ATTEND Internal Medicine Gastroenterology
DX: K22.89 Other specified disease of esophagus (principal); K22.70 Barrett's esophagus without dysplasia; R12 Heartburn; I71.40 Abdominal aortic aneurysm, without rupture, unspecified; E03.9 Hypothyroidism, unspecified; I67.1 Cerebral aneurysm, nonruptured; F17.200 Nicotine dependence, unspecified, uncomplicated; Z79.02 Long term (current) use of antithrombotics/antiplatelets; Z79.82 Long term (current) use of aspirin; Z79.890 Hormone replacement therapy; Z79.891 Long term (current) use of opiate analgesic; Z79.899 Other long term (current) drug therapy; Z88.2 Allergy status to sulfonamides; Z88.5 Allergy status to narcotic agent; Z91.041 Radiographic dye allergy status
CPT/HCPCS: 43239; 88305; J3010

== ENCOUNTER → 2023-12-06 | Outpatient (CLI) | payer MEDICARE, OTHER | LOC: M RAD 11:17 | PROVIDERS: ATTEND General Practice | DX: C34.12 Malignant neoplasm of upper lobe, left bronchus or lung (principal) ==

== ENCOUNTER 2024-02-28 12:44 | Emergency (ER) | payer MEDICARE, OTHER ==
[~2024-02-28] VITALS: Ht 152.4 cm; Wt 49.5 kg
[~2024-02-28 12:44] MED LIST changes: +GABA-1172 PO; -GABA-282 PO
[2024-02-28] MEDS ORDERED: ACET-1379 PO (13:36)
[2024-02-28] MEDS ORDERED: KETO10TAB PO (15:57)
[2024-02-28] MEDS ORDERED: KETOROLAC 30 MG/ML 1ML VIAL IV ONE (16:00)
[2024-02-28 16:04] VITALS: BP 157/93; TEMP 98.2; O2SAT 98
[2024-03-02] MEDS ORDERED: MELO15TA28 PO (15:44)
[2024-03-02] MEDS ORDERED: AMIT100TA PO (15:44)
[2024-03-02] MEDS ORDERED: ALEN70TA82 PO (15:45)
== END 2024-02-28 16:08 | disposition home or self-care (01) ==
LOC: M ED 12:44
DX: S22.42XA Multiple fractures of ribs, left side, initial encounter for closed fracture (principal); Y92.9 Unspecified place or not applicable; Y93.9 Activity, unspecified; Y99.9 Unspecified external cause status; R94.31 Abnormal electrocardiogram [ECG] [EKG]; I10 Essential (primary) hypertension; E78.5 Hyperlipidemia, unspecified; F41.9 Anxiety disorder, unspecified; F17.210 Nicotine dependence, cigarettes, uncomplicated; Z88.2 Allergy status to sulfonamides; Z88.5 Allergy status to narcotic agent; Z79.1 Long term (current) use of non-steroidal anti-inflammatories (NSAID); Z79.899 Other long term (current) drug therapy

== ENCOUNTER → 2024-03-02 | Outpatient (CLI) | payer MEDICARE, OTHER ==
[~2024-03-02] MED LIST changes: +ACET-1379 PO; +ALEN70TA82 PO; +AMIT100TA PO; +KETO10TAB PO; +MELO15TA28 PO
== END ==
LOC: M WHC 09:31
PROVIDERS: ATTEND Physician Assistant Medical
DX: Z12.31 Encounter for screening mammogram for malignant neoplasm of breast (principal); M85.89 Other specified disorders of bone density and structure, multiple sites; R92.323 Mammographic fibroglandular density, bilateral breasts

== ENCOUNTER → 2024-03-02 | Outpatient (CLI) | payer MEDICARE, OTHER | LOC: M ONCR 14:54 | PROVIDERS: ATTEND General Practice | DX: C34.12 Malignant neoplasm of upper lobe, left bronchus or lung (principal); G89.11 Acute pain due to trauma; R91.8 Other nonspecific abnormal finding of lung field; Z12.31 Encounter for screening mammogram for malignant neoplasm of breast; Z13.820 Encounter for screening for osteoporosis; S22.42XA Multiple fractures of ribs, left side, initial encounter for closed fracture; M85.89 Other specified disorders of bone density and structure, multiple sites; R92.323 Mammographic fibroglandular density, bilateral breasts; F17.210 Nicotine dependence, cigarettes, uncomplicated; Z92.3 Personal history of irradiation; Z88.1 Allergy status to other antibiotic agents; Z88.2 Allergy status to sulfonamides; Z88.5 Allergy status to narcotic agent; Z91.041 Radiographic dye allergy status; Z79.1 Long term (current) use of non-steroidal anti-inflammatories (NSAID); Z79.890 Hormone replacement therapy; Z79.891 Long term (current) use of opiate analgesic; Z79.82 Long term (current) use of aspirin; Z79.899 Other long term (current) drug therapy; Y92.9 Unspecified place or not applicable; Y93.9 Activity, unspecified; Y99.9 Unspecified external cause status | CPT/HCPCS: 77063; 77067; 77080; G0463 ==

== ENCOUNTER → 2024-03-19 | Outpatient (CLI) | payer MEDICARE, OTHER | LOC: M PLARAD 09:39 | PROVIDERS: ATTEND General Practice | DX: C34.12 Malignant neoplasm of upper lobe, left bronchus or lung (principal) | CPT/HCPCS: 78815; A9552 ==

== ENCOUNTER → 2024-03-29 | Outpatient (CLI) | payer MEDICARE, OTHER ==
[2024-03-29 13:28] LABS: BASO # 0.1 10^3/uL (0.0-0.2); BASO % 0.7 % (0.0-1.0); EOS # 0.1 10^3/uL (0.0-0.5); EOS % 2.1 % (0.0-3.0); HEMATOCRIT 36.3 % (36.0-47.0); LYMPH # 2.1 10^3/uL (1.5-5.0); MEAN CORPUSCULAR HEMOGLOBIN 33.9 pg (27.0-33.0); MEAN CORPUSCULAR HGB CONC 33.1 g/dl (32.0-36.5); MEAN CORPUSCULAR VOLUME 102.5 fl (80.0-96.0); MONO # 0.5 10^3/uL (0.0-0.8); MONO % 6.9 % (2.0-8.0); NEUTROPHILS # 3.9 10^3/uL (1.5-8.5); PLATELET COUNT, AUTOMATED 287 10^3/uL (150-450); RED BLOOD COUNT 3.54 10^6/uL (4.00-5.40); WHITE BLOOD COUNT 6.7 10^3/uL (4.0-10.0)
[2024-03-29 13:31] LABS: ALBUMIN 3.6 G/DL (3.2-5.2); ALKALINE PHOSPHATASE 112 U/L (35-104); ALT/SGPT 9 U/L (7.0-40); AST/SGOT 11 U/L (<34); BILIRUBIN,TOTAL 0.3 MG/DL (0.3-1.2); BLOOD UREA NITROGEN 17 MG/DL (9-23); CALCIUM LEVEL 9.1 MG/DL (8.3-10.6); CARBON DIOXIDE LEVEL 28 MMOL/L (20-31); CHLORIDE LEVEL 106 MMOL/L (98-107); CREATININE FOR GFR 0.87 MG/DL (0.55-1.30); GLOMERULAR FILTRATION RATE > 60.0 (>39); GLUCOSE, FASTING 104 MG/DL (74-106); POTASSIUM SERUM 4.1 MMOL/L (3.5-5.1); SODIUM LEVEL 143 MMOL/L (136-145); TOTAL PROTEIN 7.9 G/DL (5.7-8.2)
== END ==
LOC: M RAD 12:14
PROVIDERS: ATTEND Radiology Radiation Oncology
DX: C34.12 Malignant neoplasm of upper lobe, left bronchus or lung (principal)
CPT/HCPCS: 36415; 71046; 80053; 85025; G0463

== ENCOUNTER → 2024-03-29 | Outpatient (CLI) | payer MEDICARE, OTHER | LOC: M ONCR 11:42 | PROVIDERS: ATTEND General Practice | DX: C34.12 Malignant neoplasm of upper lobe, left bronchus or lung (principal); R06.02 Shortness of breath; F17.218 Nicotine dependence, cigarettes, with other nicotine-induced disorders; Z88.5 Allergy status to narcotic agent; Z88.1 Allergy status to other antibiotic agents; Z88.2 Allergy status to sulfonamides; Z91.041 Radiographic dye allergy status; Z79.1 Long term (current) use of non-steroidal anti-inflammatories (NSAID); Z79.890 Hormone replacement therapy; Z79.82 Long term (current) use of aspirin; Z79.891 Long term (current) use of opiate analgesic; Z79.899 Other long term (current) drug therapy; Z92.3 Personal history of irradiation ==

== ENCOUNTER → 2024-05-08 | Outpatient (CLI) | payer MEDICARE, OTHER | LOC: M WUC 13:37 | PROVIDERS: ATTEND Physician Assistant Medical | DX: R05.9 Cough, unspecified (principal); R06.02 Shortness of breath; J20.9 Acute bronchitis, unspecified ==

== ENCOUNTER → 2024-05-08 | Outpatient (REF) | payer MEDICARE, OTHER | LOC: M LAB REF 16:12 | PROVIDERS: ATTEND Physician Assistant Medical | DX: R05.9 Cough, unspecified (principal) ==

== ENCOUNTER 2024-05-31 11:52 | Emergency (ER) | payer MEDICARE, OTHER ==
[~2024-05-31] VITALS: Ht 147.3 cm; Wt 48.2 kg
[2024-05-31] MEDS: ONDANSETRON 4MG 2ML VIAL IV ONE (13:14)
[2024-05-31 13:28] LABS: BASO % 0.1 % (0.0-1.0); EOS % 0.3 % (0.0-3.0); HEMATOCRIT 34.1 % (36.0-47.0); HEMOGLOBIN 11.5 g/dl (12.0-15.5); LYMPH # 1.3 10^3/uL (1.5-5.0); LYMPH % 17.2 % (24.0-44.0); MEAN CORPUSCULAR HGB CONC 33.7 g/dl (32.0-36.5); MEAN CORPUSCULAR VOLUME 100.9 fl (80.0-96.0); MONO # 0.5 10^3/uL (0.0-0.8); NEUTROPHILS # 5.9 10^3/uL (1.5-8.5); NEUTROPHILS % 75.9 % (36.0-66.0); PLATELET COUNT, AUTOMATED 162 10^3/uL (150-450); RED BLOOD COUNT 3.38 10^6/uL (4.00-5.40); WHITE BLOOD COUNT 7.7 10^3/uL (4.0-10.0)
[2024-05-31 13:41] LABS: INR 1.12; PARTIAL THROMBOPLASTIN TIME 28.3 SECONDS (24.8-34.2); PROTHROMBIN TIME 14.7 SECONDS (12.5-14.5)
[2024-05-31 13:52] LABS: CK-MB VALUE MASS < 1.0 NG/ML (<3.6)
[2024-05-31 13:55] LABS: FREE T4 1.06 NG/DL (0.89-1.76)
[2024-05-31 13:58] LABS: THYROID STIMULATING HORMONE 6.131 uIU/ML (0.55-4.78)
[2024-05-31 14:01] LABS: ALBUMIN 2.8 G/DL (3.2-5.2); ALKALINE PHOSPHATASE 73 U/L (35-104); ALT/SGPT 19 U/L (7.0-40); AST/SGOT 15 U/L (<34); BILIRUBIN,DIRECT 0.1 MG/DL (<0.4); BILIRUBIN,TOTAL 0.4 MG/DL (0.3-1.2); BLOOD UREA NITROGEN 23 MG/DL (9-23); CARBON DIOXIDE LEVEL 27 MMOL/L (20-31); CHLORIDE LEVEL 107 MMOL/L (98-107); CPK CREATINE PHOSPHOKINASE 35 U/L (34-145); CREATININE FOR GFR 0.96 MG/DL (0.55-1.30); GLOMERULAR FILTRATION RATE > 60.0 (>39); GLUCOSE, FASTING 95 MG/DL (74-106); MAGNESIUM LEVEL 1.6 MG/DL (1.8-2.4); MB/CK RELATIVE INDEX 2.85 (< OR =4); POTASSIUM SERUM 3.6 MMOL/L (3.5-5.1); SODIUM LEVEL 142 MMOL/L (136-145); TOTAL PROTEIN 6.1 G/DL (5.7-8.2)
[2024-05-31] MEDS: ACETAMINOPHEN *IV* 1,000 MG in IV 1 EA IV ONE (14:23)
[2024-05-31] MEDS: METOCLOPRAMIDE INJ 10MG/2ML VIAL IV ONE (14:24)
[2024-05-31] MEDS: IPRATROPIUM 0.5MG/ALBUTEROL 2.5MG INH SOL UD 3ML (DUONEB) NEB ONE (14:55)
[2024-05-31] MEDS: NS (Normal Saline) 0.9% 1,000 ML IV ONE (15:09)
[2024-05-31 15:48] LABS: CK-MB VALUE MASS < 1.0 NG/ML (<3.6); CPK CREATINE PHOSPHOKINASE 47 U/L (34-145); MB/CK RELATIVE INDEX 2.12 (< OR =4)
[2024-05-31 16:25] LABS: KETONE, URINE AUTO RFX NEGATIVE (NEGATIVE); LEUKOCYTE ESTERASE UR AUTO RFX 2+ (NEGATIVE); MUCUS, URINE RFX SMALL (NEGATIVE); NITRITE, URINE AUTO RFX NEGATIVE (NEGATIVE); RBC, URINE AUTO RFX 1 /HPF (0-3); SQUAM EPITHELIAL CELL UR AURFX 3 /HPF (0-6); WBC, URINE AUTO RFX 5 /HPF (0-3)
[2024-05-31] MEDS ORDERED: PROM12.56 PO (17:15)
[2024-05-31 17:27] VITALS: BP 185/87; TEMP 98.3; O2SAT 93
== END 2024-05-31 17:43 | disposition home or self-care (01) ==
LOC: M ED 11:52
DX: U07.1 COVID-19 (principal); J44.1 Chronic obstructive pulmonary disease with (acute) exacerbation; I45.81 Long QT syndrome; I10 Essential (primary) hypertension; E78.5 Hyperlipidemia, unspecified; F41.9 Anxiety disorder, unspecified; F32.A Depression, unspecified; F17.210 Nicotine dependence, cigarettes, uncomplicated; Z88.5 Allergy status to narcotic agent; Z88.2 Allergy status to sulfonamides; Z91.041 Radiographic dye allergy status; Z79.1 Long term (current) use of non-steroidal anti-inflammatories (NSAID); Z79.899 Other long term (current) drug therapy
CPT/HCPCS: 70450; 71045; 80048; 80076; 81001; 82550; 82553; 83735; 84439; 84443; 84484; 85025; 85610; 85730; 87086; 87486; 87581; 87633; 87798; 93005; 93041; 94640; 96365; 96366; 96375; 99285; J0131; J1100; J2405; J2765

== ENCOUNTER → 2024-06-19 | Outpatient (CLI) | payer MEDICARE, OTHER ==
[~2024-06-19] MED LIST changes: +PROM12.56 PO
== END ==
LOC: M WUC 11:25
PROVIDERS: ATTEND Physician Assistant Medical
DX: R05.9 Cough, unspecified (principal); R06.02 Shortness of breath